=== PATIENT | female | born 1995 | race Caucasian/White ===

== ENCOUNTER 2017-04-23 12:50 | Emergency (ER) | payer OTHER ==
[~2017-04-23] VITALS: Ht 170.2 cm; Wt 162.0 kg
[~2017-04-23 12:50] MED LIST: CITA40TA4 PO; LAMI25TA PO; LEVO125T3 PO; SYNT112T2 PO; TRINTAB PO; ZONI100C2 PO
[2017-04-23 12:51] VITALS: BP 153/74
[2017-04-23] MEDS ORDERED: OMEP40CA2 (13:07)
[2017-04-23] MEDS ORDERED: WELLTAB40 PO (13:07)
[2017-04-23] MEDS ORDERED: LEVO112T2 (13:07)
[2017-04-23] MEDS ORDERED: PRAV20TA2 (13:07)
[2017-04-23] MEDS ORDERED: BACT800T5 PO (14:11)
[2017-04-23] MEDS ORDERED: KEFL500C7 PO (14:11)
[2017-04-23] MEDS ORDERED: CLAR1TAB2 PO (14:11)
== END 2017-04-23 14:27 | disposition home or self-care (01) ==
LOC: M ED 13:58
DX: R21 Rash and other nonspecific skin eruption (principal); E78.00 Pure hypercholesterolemia, unspecified; K21.9 Gastro-esophageal reflux disease without esophagitis; R51 Headache; E03.9 Hypothyroidism, unspecified; F33.9 Major depressive disorder, recurrent, unspecified; Z85.850 Personal history of malignant neoplasm of thyroid; Z79.899 Other long term (current) drug therapy; Z88.5 Allergy status to narcotic agent

== ENCOUNTER 2017-04-23 17:43 | Emergency (ER) | payer OTHER ==
[~2017-04-23] VITALS: Ht 170.2 cm; Wt 162.0 kg
[~2017-04-23 17:43] MED LIST changes: +BACT800T5 PO; +CLAR1TAB2 PO; +KEFL500C17 PO; +LEVO112T2 PO; -LEVO125T3 PO; +LEVO125T4 PO; +OMEP40CA2 PO; +PRAV20TA2; -TRINTAB PO; +TRINTAB3 PO; +WELLTAB40 PO
[2017-04-23] MEDS ORDERED: DOXYCYCLINE HYCLATE 100 MG in D5W MINI-BAG PLUS 100 ML IV ONE (19:45)
[2017-04-23] MEDS ORDERED: KETOROLAC 30 MG/ML VIAL (J1885) IV ONE (19:45)
[2017-04-23] MEDS ORDERED: ceFAZolin SOD 1 GM in D5W MINI-BAG PLUS 50 ML IV ONE (19:45)
[2017-04-23 20:28] LABS: BASO # 0.1 K/mm3 (0.0-0.2); BASO % 0.9 % (0.0-1.0); EOS # 0.2 K/mm3 (0.0-0.50); EOS % 1.8 % (0.0-3.0); LARGE UNSTAINED CELL # 0.3 K/mm3 (0.0-0.4); LARGE UNSTAINED CELL % 2.2 % (0.0-4.0); LYMPH # 2.9 K/mm3 (1.5-6.5); LYMPH % 25.2 % (24.0-44.0); MEAN CORPUSCULAR HEMOGLOBIN 22.8 pg (27.0-33.0); MEAN CORPUSCULAR HGB CONC 30.5 g/dl (32.0-36.5); MEAN CORPUSCULAR VOLUME 74.6 fl (80.0-96.0); MONO # 0.5 K/mm3 (0.0-0.8); NEUTROPHILS # 7.6 K/mm3 (1.8-7.7); PLATELET COUNT, AUTOMATED 319 k/mm3 (150-450); RED CELL DISTRIBUTION WIDTH 16.5 % (11.5-14.5); WHITE BLOOD COUNT 11.5 K/mm3 (4.0-10.0)
[2017-04-23 20:39] LABS: ANION GAP 5 MEQ/L (8-16); BLOOD UREA NITROGEN 10 MG/DL (7-18); CALCIUM LEVEL 8.6 MG/DL (8.5-10.1); CARBON DIOXIDE LEVEL 26 MEQ/L (21-32); CHLORIDE LEVEL 105 MEQ/L (98-107); GLOMERULAR FILTRATION RATE > 60.0 (>60); GLUCOSE, FASTING 95 MG/DL (70-105); POTASSIUM SERUM 3.7 MEQ/L (3.5-5.1); SODIUM LEVEL 136 MEQ/L (136-145)
--- NOTE | 2017-04-23 20:50 | REPUSA ---
CLINICAL HISTORY: Edema. COMMENTS: Real time sonography with duplex doppler of the extremities bilaterally was performed with attention to the major deep venous structures. Evaluation reveals the common femoral, superficial femoral, popliteal veins bilaterally to be complet nirav compressible without intraluminal thrombus. There is normal spontaneous phasic flow and augmentat ion in all deep veins. The greater saphenous/common femoral vein junctions are patent bilaterally. IMPRESSION: No evidence of DVT in the lower extremities bilaterally. Thank you for your kind referral of this patient.
[2017-04-23 22:10] LABS: ERYTHROCYTE SEDIMENTATION RATE 19 mm/hr (0-20)
[2017-04-23 22:19] VITALS: BP 138/66
[2017-08-04] MEDS ORDERED: VYVA30CA4 PO (13:07)
[2017-08-13] MEDS ORDERED: OXYC1TAB23 PO (08:43)
== END 2017-04-23 22:31 | disposition home or self-care (01) ==
LOC: M ED 19:11
DX: L03.115 Cellulitis of right lower limb (principal); L03.116 Cellulitis of left lower limb; K21.9 Gastro-esophageal reflux disease without esophagitis; E78.5 Hyperlipidemia, unspecified; R51 Headache; Z85.850 Personal history of malignant neoplasm of thyroid

== ENCOUNTER 2017-04-30 11:00 | Outpatient (RCR) | payer OTHER ==
[2017-08-04] MEDS ORDERED: VYVA30CA4 PO (13:07)
== END 2017-05-09 ==
LOC: M PT 11:00
PROVIDERS: ATTEND Podiatrist Foot & Ankle Surgery
DX: Z51.89 Encounter for other specified aftercare (principal); M72.2 Plantar fascial fibromatosis

== ENCOUNTER 2017-05-26 11:45 | Outpatient (RCR) | payer OTHER ==
[2017-08-04] MEDS ORDERED: VYVA30CA4 PO (13:07)
== END 2017-06-09 ==
LOC: M PT 11:45
PROVIDERS: ATTEND Podiatrist Foot & Ankle Surgery
DX: Z51.89 Encounter for other specified aftercare (principal); M72.2 Plantar fascial fibromatosis

== ENCOUNTER → 2017-07-29 | Outpatient (CLI) | payer OTHER ==
[~2017-07-29] MED LIST changes: +FERR1TAB8; +OXYC1TAB23 PO; +VYVA30CA4 PO
[2017-07-29 13:08] LABS: MEAN CORPUSCULAR HEMOGLOBIN 22.6 pg (27.0-33.0); MEAN CORPUSCULAR HGB CONC 30.9 g/dl (32.0-36.5); MEAN CORPUSCULAR VOLUME 73.3 fl (80.0-96.0); RED CELL DISTRIBUTION WIDTH 16.3 % (11.5-14.5); WHITE BLOOD COUNT 10.3 K/mm3 (4.0-10.0)
[2017-07-29 13:40] LABS: ANION GAP 5 MEQ/L (8-16); BLOOD UREA NITROGEN 8 MG/DL (7-18); CALCIUM LEVEL 8.6 MG/DL (8.5-10.1); CARBON DIOXIDE LEVEL 29 MEQ/L (21-32); CHLORIDE LEVEL 105 MEQ/L (98-107); CREATININE FOR GFR 0.59 MG/DL (0.55-1.02); GLOMERULAR FILTRATION RATE > 60.0 (>60); GLUCOSE, FASTING 92 MG/DL (70-105); SODIUM LEVEL 139 MEQ/L (136-145)
== END ==
LOC: M LAB 12:43
PROVIDERS: ATTEND Podiatrist Foot & Ankle Surgery
DX: M72.2 Plantar fascial fibromatosis (principal)

== ENCOUNTER 2017-08-08 13:51 | Emergency (ER) | payer OTHER ==
[~2017-08-08] VITALS: Ht 170.2 cm; Wt 162.7 kg
[2017-08-08 13:51] VITALS: BP 156/82
[~2017-08-08 13:51] MED LIST changes: -FERR1TAB8; -OXYC1TAB23 PO
[2017-08-08] MEDS ORDERED: FERR1TAB8 (13:59)
[2017-08-08] MEDS ORDERED: KEFL500C17 PO (16:28)
[2017-08-13] MEDS ORDERED: OXYC1TAB23 PO (08:43)
== END 2017-08-08 16:36 | disposition home or self-care (01) ==
LOC: M ED 13:51
DX: L25.9 Unspecified contact dermatitis, unspecified cause (principal)

== ENCOUNTER 2017-08-13 06:20 | Day surgery (SDC) | payer OTHER ==
[~2017-08-13] VITALS: Ht 170.2 cm; Wt 162.4 kg
[~2017-08-13 06:20] MED LIST changes: +FERR1TAB8
[2017-08-13] MEDS ORDERED: LR 1,000 ML IV ONE (06:30)
[2017-08-13] MEDS ORDERED: LIDOCAINE 2% MDV 20 ML VIAL As Ordered ONE (06:52)
[2017-08-13] MEDS ORDERED: BUPIVACAINE HCL 0.5% 10 ML VIAL As Ordered ONE (06:52)
[2017-08-13] MEDS ORDERED: dexameTHASONE 4 MG/ML 1ML VIAL (J1100) As Ordered ONE ×3 (06:53→08:16)
[2017-08-13 06:57] LABS: CONTROL LINE UCG INT CTR LINE PRESENT
[2017-08-13] MEDS ORDERED: fentaNYL 100 MCG/2 ML INJECTION (J3010) As Ordered ONE (07:06)
[2017-08-13] MEDS ORDERED: MIDAZOLAM INJ 2 MG/2 ML VIAL (J2250) As Ordered ONE (07:07)
[2017-08-13] MEDS ORDERED: LIDOCAINE 1% MDV 20ML VIAL As Ordered ONE (08:06)
[2017-08-13] MEDS ORDERED: LIDOCAINE 2% INJ 100 MG/5 ML SDV (FOR ANES.) As Ordered ONE ×2 (08:13→08:15)
[2017-08-13] MEDS ORDERED: PROPOFOL 200 MG/20 ML VIAL As Ordered ONE (08:13)
[2017-08-13] MEDS ORDERED: ONDANSETRON 4MG/2ML VIAL (J2405) As Ordered ONE (08:16)
[2017-08-13] MEDS ORDERED: OXYC1TAB23 PO (08:43)
[2017-08-13] MEDS ORDERED: ONDANSETRON 4MG/2ML VIAL (J2405) IV PRN (09:15)
[2017-08-13] MEDS ORDERED: LR 1,000 ML IV SCH (09:15)
[2017-08-13] MEDS ORDERED: PERCOCET 5MG/325MG TAB PO PRN (09:15)
[2017-08-13 09:45] VITALS: BP 175/110
--- NOTE | 2017-08-13 10:48 | RO ---
DATE OF PROCEDURE: 08/13/2017 PREPROCEDURE DIAGNOSIS: Bilateral plantar fasciitis. POSTPROCEDURE DIAGNOSIS: Bilateral plantar fasciitis. PROCEDURE: Bilateral endoscopic plantar fascia release. SURGEON: Markos Sanchez DPM BREWING TECHNICIAN: None. ANESTHESIA: Monitored anesthesia care with preoperative injection of 30 mL of 1:1 mixture of 1% lidocaine plain and 0.5% Marcaine plain. ESTIMATED BLOOD LOSS: Minimal. MATERIALS: #4-0 nylon. INJECTABLES: 10 mL 1% lidocaine plain, 1 mL Decadron 4 mg/mL per foot. COMPLICATIONS: None. CONDITION: Stable. Linda Echeverria is a 22-year-old female who presents with complaints of painful plantar fasciitis. She has undergone numerous conservative therapies without relief. She presents today for surgical correction. The patient's side and site were identified and marked in preoperative holding area. Consent was reviewed and obtained. All risks and complications and alternatives to the procedure were explained to the patient in detail. Questions were answered. DESCRIPTION OF PROCEDURE: The patient was brought to the operating room and placed on the operating room table in supine position. Monitored anesthesia care was delivered by the anesthesia team. Preoperative injection of 30 mL of 1:1 mixture of 1% lidocaine plain and 0.5% Marcaine plain were injected to the both feet. The feet were prepped and draped in a normal sterile fashion. Tourniquet was applied to each ankle inflated to 250 mmHg. On each heel, a small incision was made with a #15 blade, medial aspect of the heel. A hemostat was used to create a plane on the inferior margin of the plantar fascia. The trocar was then inserted from medial to lateral and a small portal was created at the lateral heel using a #15 blade. The trocar was removed leaving the cannula in place. The camera was inserted. The plantar fascia was visualized. The plantar fascia was released using the blade approximately two-thirds of the way across leaving the lateral one-third of the fascia intact. The site was irrigated with normal saline. Cannula was removed. Incision closed with #4-0 Nylon. 1 mL Decadron was injected to each incision site. Tourniquets were deflated. Sterile dressings were applied. Patient was brought to postanesthesia care unit with vital signs stable, neurovascular status intact. She will be weight bearing as tolerated. She will followup in office in 2 days.
== END 2017-08-13 09:50 | disposition home or self-care (01) ==
LOC: M SDC 06:20
PROVIDERS: ATTEND Podiatrist Foot & Ankle Surgery
DX: M72.2 Plantar fascial fibromatosis (principal); D64.9 Anemia, unspecified; F32.9 Major depressive disorder, single episode, unspecified; F41.9 Anxiety disorder, unspecified; N94.6 Dysmenorrhea, unspecified; F50.81 Binge eating disorder; J21.9 Acute bronchiolitis, unspecified; E05.00 Thyrotoxicosis with diffuse goiter without thyrotoxic crisis or storm; N92.0 Excessive and frequent menstruation with regular cycle; G43.909 Migraine, unspecified, not intractable, without status migrainosus; E66.9 Obesity, unspecified; G47.33 Obstructive sleep apnea (adult) (pediatric); E03.9 Hypothyroidism, unspecified; R06.83 Snoring; Z88.5 Allergy status to narcotic agent; Z79.899 Other long term (current) drug therapy

== ENCOUNTER 2017-11-10 13:00 | Emergency (ER) | payer MEDICAID, OTHER, SELFPAY | END 2017-11-10 16:50 | disposition left against medical advice (07) | LOC: M ED 13:00 | DX: Z53.29 Procedure and treatment not carried out because of patient's decision for other reasons (principal) ==

== ENCOUNTER 2018-02-25 09:17 | Day surgery (SDC) | payer OTHER ==
[2018-02-25] MEDS: NS 1,000 ML IV (09:30)
[2018-02-25] MEDS ORDERED: PROPOFOL 200 MG/20 ML VIAL As Ordered ×2 (10:00→10:08)
== END 2018-02-25 11:05 | disposition home or self-care (01) ==
LOC: M OPP 09:17
DX: R10.13 Epigastric pain (principal); R12 Heartburn; K22.8 Other specified diseases of esophagus; K44.9 Diaphragmatic hernia without obstruction or gangrene; I10 Essential (primary) hypertension; E78.5 Hyperlipidemia, unspecified; E03.9 Hypothyroidism, unspecified; K21.9 Gastro-esophageal reflux disease without esophagitis; D64.9 Anemia, unspecified; K59.00 Constipation, unspecified; F32.9 Major depressive disorder, single episode, unspecified; F41.9 Anxiety disorder, unspecified; R51 Headache; G47.30 Sleep apnea, unspecified; R06.83 Snoring; E66.01 Morbid (severe) obesity due to excess calories; Z88.8 Allergy status to other drugs, medicaments and biological substances; Z88.5 Allergy status to narcotic agent; Z79.899 Other long term (current) drug therapy
CPT/HCPCS: 43235

== ENCOUNTER 2018-08-03 20:49 | Emergency (ER) | payer OTHER ==
[2018-08-03 22:22] LABS: KETONE, URINE AUTO RFX 2+ mg/dL (NEGATIVE); LEUKOCYTE ESTERASE UR AUTO RFX NEGATIVE (NEGATIVE); MUCUS, URINE RFX LARGE (NEGATIVE); NITRITE, URINE AUTO RFX NEGATIVE (NEGATIVE); RBC, URINE AUTO RFX 3 /HPF (0-3); SPECIFIC GRAVITY UR AUTO RFX 1.021 (1.002-1.035); SQUAM EPITHELIAL CELL UR AURFX 1 /HPF (0-6); WBC, URINE AUTO RFX 5 /HPF (0-3)
[2018-08-03 23:38] LABS: CONTROL LINE UCG INT CTR LINE PRESENT; URINE PREG TEST NEGATIVE (NEGATIVE)
[2018-08-04] MEDS: GASTROGRAFIN SOLUTION 30ML PO ×2 (00:39→01:15)
[2018-08-04 00:56] LABS: BASO % 0.6 % (0.0-1.0); EOS # 0.1 10^3/uL (0.0-0.50); EOS % 1.9 % (0.0-3.0); HEMATOCRIT 34.5 % (36.0-47.0); HEMOGLOBIN 10.6 g/dl (12.0-15.5); IMMATURE GRANULOCYTE % 0.2 % (0-3.0); LYMPH % 42.4 % (24.0-44.0); MEAN CORPUSCULAR HEMOGLOBIN 25.1 pg (27.0-33.0); MEAN CORPUSCULAR HGB CONC 30.7 g/dl (32.0-36.5); MEAN CORPUSCULAR VOLUME 81.6 fl (80.0-96.0); MONO # 0.4 10^3/uL (0.0-0.8); MONO % 8.1 % (0.0-5.0); NEUTROPHILS # 2.2 10^3/uL (1.8-7.7); NEUTROPHILS % 46.8 % (36.0-66.0); PLATELET COUNT, AUTOMATED 227 10^3/uL (150-450); RED BLOOD COUNT 4.23 10^6/uL (4.00-5.40); RED CELL DISTRIBUTION WIDTH 16.8 % (11.5-14.5); WHITE BLOOD COUNT 4.7 10^3/uL (4.0-10.0)
[2018-08-04 01:16] LABS: ALBUMIN 3.6 GM/DL (3.2-5.2); ALBUMIN/GLOBULIN RATIO 1.24 (1.00-1.93); ALKALINE PHOSPHATASE 97 U/L (45-117); ALT/SGPT 40 U/L (12-78); ANION GAP 8 MEQ/L (8-16); AST/SGOT 21 U/L (7-37); BILIRUBIN,DIRECT 0.1 MG/DL (0.0-0.2); BILIRUBIN,TOTAL 0.4 MG/DL (0.2-1.0); BLOOD UREA NITROGEN 5 MG/DL (7-18); CALCIUM LEVEL 8.5 MG/DL (8.5-10.1); CARBON DIOXIDE LEVEL 26 MEQ/L (21-32); CHLORIDE LEVEL 108 MEQ/L (98-107); CK-MB VALUE MASS < 1.0 NG/ML (<3.6); CPK CREATINE PHOSPHOKINASE 50 U/L (26-192); CREATININE FOR GFR 0.63 MG/DL (0.55-1.30); GLOMERULAR FILTRATION RATE > 60.0 (>60); GLUCOSE, FASTING 99 MG/DL (70-100); LIPASE 140 U/L (73-393); POTASSIUM SERUM 3.7 MEQ/L (3.5-5.1); SODIUM LEVEL 142 MEQ/L (136-145); TOTAL PROTEIN 6.5 GM/DL (6.4-8.2); TROPONIN I < 0.02 NG/ML (< 0.10)
[2018-08-04] MEDS ORDERED: ISOVUE-370 76% 100ML VIAL (Q9967) As Ordered (02:10)
[2018-08-04] MEDS: OXYCODONE/APAP 5MG/325MG(BULK FOR ED) 1 TABLET PO (04:15)
== END 2018-08-04 04:27 | disposition home or self-care (01) ==
LOC: M ED 08-04 04:27
DX: R10.9 Unspecified abdominal pain (principal); Z98.84 Bariatric surgery status; I10 Essential (primary) hypertension; K21.9 Gastro-esophageal reflux disease without esophagitis
CPT/HCPCS: Q9963

== ENCOUNTER → 2018-10-26 | Outpatient (CLI) | payer OTHER ==
[~2018-10-26] MED LIST changes: +ATOR1TAB21 PO; +FAMO1TAB11; +LISI-542 PO; +OXYC1TAB23 PO; +VYVA40CA3 PO
[2018-10-26 15:37] LABS: FREE T4 0.38 NG/DL (0.76-1.46); THYROID STIMULATING HORMONE 78.7 uIU/ML (0.358-3.740)
== END ==
LOC: M LAB 14:17
PROVIDERS: ATTEND Internal Medicine Endocrinology, Diabetes & Metabolism
DX: E89.0 Postprocedural hypothyroidism (principal)

== ENCOUNTER → 2018-10-26 | Outpatient (REF) | payer OTHER | LOC: M LAB REF 18:24 | PROVIDERS: ATTEND Surgery | DX: K91.2 Postsurgical malabsorption, not elsewhere classified (principal); Z98.84 Bariatric surgery status ==

== ENCOUNTER → 2018-12-22 | Outpatient (REF) | payer OTHER ==
[~2018-12-22] MED LIST changes: +TRINTAB PO; -TRINTAB3 PO
[2018-12-22 16:51] LABS: APPEARANCE, URINE CLEAR (CLEAR); BACTERIA, URINE AUTO NEGATIVE (NEGATIVE); BILIRUBIN, URINE AUTO NEGATIVE (NEGATIVE); BLOOD, URINE BLOOD NEGATIVE (NEGATIVE); COLOR, URINE YELLOW (YELLOW); GLUCOSE, URINE (UA) AUTO NEGATIVE (NEGATIVE); KETONE, URINE AUTO TRACE mg/dL (NEGATIVE); LEUKOCYTE ESTERASE, URINE AUTO NEGATIVE (NEGATIVE); MUCUS, URINE SMALL (NEGATIVE); NITRITE, URINE AUTO NEGATIVE (NEGATIVE); PROTEIN, URINE AUTO NEGATIVE (NEGATIVE); RBC, URINE AUTO 0 /HPF (0-3); SPECIFIC GRAVITY URINE AUTO 1.025 (1.002-1.035); SQUAMOUS EPITHELIAL CELL UR AU 1 /HPF (0-6); UROBILINOGEN, URINE AUTO 0.2 mg/dL (0.0-2.0); WBC, URINE AUTO 1 /HPF (0-3)
== END ==
LOC: M LAB REF 16:18
PROVIDERS: ATTEND Physician Assistant Medical
DX: N39.0 Urinary tract infection, site not specified (principal)

== ENCOUNTER 2019-03-18 01:22 | Emergency (ER) | payer OTHER ==
[~2019-03-18] VITALS: Ht 170.2 cm; Wt 137.8 kg
[2019-03-18] MEDS ORDERED: LEVO125T4 PO (02:17)
[2019-03-18] MEDS ORDERED: MULTCAP PO (02:17)
[2019-03-18 02:20] LABS: BASO # 0.1 10^3/uL (0.0-0.2); BASO % 0.7 % (0.0-1.0); EOS # 0.2 10^3/uL (0.0-0.50); EOS % 1.5 % (0.0-3.0); HEMATOCRIT 36.1 % (36.0-47.0); HEMOGLOBIN 10.9 g/dl (12.0-15.5); LYMPH # 2.7 10^3/uL (1.5-6.5); LYMPH % 27.9 % (24.0-44.0); MEAN CORPUSCULAR HGB CONC 30.2 g/dl (32.0-36.5); MEAN CORPUSCULAR VOLUME 79.3 fl (80.0-96.0); MONO # 0.7 10^3/uL (0.0-0.8); MONO % 6.9 % (0.0-5.0); NEUTROPHILS # 6.1 10^3/uL (1.8-7.7); NEUTROPHILS % 62.6 % (36.0-66.0); PLATELET COUNT, AUTOMATED 320 10^3/uL (150-450); RED BLOOD COUNT 4.55 10^6/uL (4.00-5.40); WHITE BLOOD COUNT 9.8 10^3/uL (4.0-10.0)
[2019-03-18] MEDS ORDERED: ESCI10TA2 PO (02:31)
[2019-03-18 02:34] LABS: HCG, SERUM QUALITATIVE NEGATIVE (NEGATIVE)
[2019-03-18] MEDS ORDERED: ONDANSETRON 4MG/2ML VIAL (J2405) IV ONE (02:45)
[2019-03-18 02:54] LABS: ALBUMIN 3.5 GM/DL (3.2-5.2); ALT/SGPT 23 U/L (12-78); BILIRUBIN,DIRECT 0.1 MG/DL (0.0-0.2); BILIRUBIN,TOTAL 0.5 MG/DL (0.2-1.0); BLOOD UREA NITROGEN 8 MG/DL (7-18); CALCIUM LEVEL 8.8 MG/DL (8.5-10.1); CARBON DIOXIDE LEVEL 28 MEQ/L (21-32); CHLORIDE LEVEL 106 MEQ/L (98-107); CREATININE FOR GFR 0.55 MG/DL (0.55-1.30); GLOMERULAR FILTRATION RATE > 60.0 (>60); GLUCOSE, FASTING 92 MG/DL (70-100); LIPASE 111 U/L (73-393); POTASSIUM SERUM 4.3 MEQ/L (3.5-5.1); SODIUM LEVEL 142 MEQ/L (136-145); TOTAL PROTEIN 6.7 GM/DL (6.4-8.2)
[2019-03-18] MEDS: MORPHINE 2 MG/ML 1ML SYRINGE (J2270) IV PRN ×2 (02:59→03:41)
--- NOTE | 2019-03-18 03:10 | REP ---
Clinical: Abdominal pain. Rule out perforation. Technique: Upright view of the chest with supine and upright views of the abdomen and pelvis. Findings: Frontal upright view of the chest demonstrates no acute cardiopulmonary process or free air below the diaphragm to suspect pneumoperitoneum. Supine and upright views of the abdomen and pelvis demonstrate nonspecific bowel gas pattern without obstruction or perforation. No organomegaly. No abnormal calcifications. Skeletal structures normal for age. Impression: Nonspecific bowel gas pattern. Electronically Signed by Yves Rinaldi MD 03/18/2019 03:02 A
[2019-03-18] MEDS ORDERED: ISOVUE-370 76% 100ML VIAL (Q9967) As Ordered ONE (03:22)
[2019-03-18] MEDS: GASTROGRAFIN SOLUTION 30ML PO SCH ×2 (03:41→03:55)
--- NOTE | 2019-03-18 05:19 | REPVR ---
EXAM: CT Abdomen and Pelvis With Contrast EXAM DATE/TIME: 03/18/2019 3:14 AM CLINICAL HISTORY: 23 years old, female; Abdominal pain; Epigastric; Prior surgery; Surgery date: 6+ months; Surgery type: G bypass; Additional info: R/O gastric bypass perforation TECHNIQUE: Imaging protocol: Axial computed tomography images of the abdomen and pelvis with intravenous contrast. Coronal and sagittal reformatted images were created and reviewed. Radiation optimization: All CT scans at this facility use at least one of these dose optimization techniques: automated exposure control; mA and/or kV adjustment per patient size (includes targeted exams where dose is matched to clinical indication); or iterative reconstruction. Contrast material: ISO; Contrast volume: 100 ml; Contrast route: AC; COMPARISON: CT ABD/PEL W/IV ORAL CONTRAS 08/04/2018 2:10 AM FINDINGS: Lungs: There is mild peripheral nonspecific groundglass opacity in the bilateral lung bases. ABDOMEN: Liver: The liver appears heterogeneously decreased in density, consistent with fatty infiltration. Gallbladder and bile ducts: There has been a cholecystectomy. There is no biliary ductal dilation. Pancreas: The pancreas is normal with no ductal dilation. Spleen: The spleen is mildly enlarged measuring 15 cm, unchanged from prior exam. Adrenals: The adrenal glands are normal. Kidneys and ureters: The kidneys are normal. There are no ureteral stones or hydronephrosis. Stomach and bowel: There are surgical sutures at the stomach and small bowel, related to a gastric bypass surgery. There is no dilation or thickening of the small bowel. The regions of the anastomoses appear unremarkable. There is no dilation or thickening of the colon. Appendix: The appendix is not specifically identified. PELVIS: Bladder: The bladder is unremarkable. No stones identified. Reproductive: The uterus is unremarkable. There is a tampon in the vagina. ABDOMEN and PELVIS: Intraperitoneal space: There is a trace of free fluid in pelvis. There is no free intraperitoneal air. Bones/joints: No suspicious osseous lesions. No acute fractures or dislocations. Soft tissues: Unremarkable. Vasculature: The aorta is normal. No aneurysm. Lymph nodes: No lymphadenopathy is seen. There are multiple small mesenteric lymph nodes in the right lower quadrant, not pathologically enlarged by CT criteria, and slightly smaller than on the prior exam. IMPRESSION: 1. No inflammatory changes around the sites of anastomoses from the gastric bypass. No evidence of bowel perforation. 2. Fatty liver. 3. Mild splenomegaly, unchanged. Electronically signed by: Beulah Wells On 03/18/2019 05:18:44 AM
[2019-03-18] MEDS ORDERED: BISACODYL 5 MG TAB PO ONE (05:30)
[2019-03-18] MEDS ORDERED: DICY10CA13 PO (05:40)
[2019-03-18 05:48] VITALS: BP 129/64
== END 2019-03-18 05:55 | disposition home or self-care (01) ==
LOC: M ED 01:22
DX: K59.00 Constipation, unspecified (principal); Z98.84 Bariatric surgery status; Z79.899 Other long term (current) drug therapy; Z88.5 Allergy status to narcotic agent
CPT/HCPCS: 74021; 74177; 80048; 80076; 81001; 83690; 84703; 85025; 96374; 96375; 96376; 99284; J2270; J2405; Q9963; Q9967

== ENCOUNTER → 2019-04-07 | Outpatient (REF) | payer OTHER, MEDICAID ==
[~2019-04-07] MED LIST changes: +DICY10CA13 PO; +ESCI10TA2 PO; +MULTCAP PO
[2019-04-07 12:59] LABS: BASO # 0.1 10^3/uL (0.0-0.2); BASO % 0.7 % (0.0-1.0); EOS # 0.2 10^3/uL (0.0-0.50); EOS % 1.7 % (0.0-3.0); HEMATOCRIT 35.8 % (36.0-47.0); HEMOGLOBIN 10.7 g/dl (12.0-15.5); LYMPH # 2.7 10^3/uL (1.5-6.5); MEAN CORPUSCULAR HEMOGLOBIN 23.3 pg (27.0-33.0); MEAN CORPUSCULAR HGB CONC 29.9 g/dl (32.0-36.5); MONO # 0.5 10^3/uL (0.0-0.8); MONO % 6.1 % (0.0-5.0); NEUTROPHILS # 5.5 10^3/uL (1.8-7.7); NEUTROPHILS % 61.3 % (36.0-66.0); PLATELET COUNT, AUTOMATED 325 10^3/uL (150-450); RED BLOOD COUNT 4.59 10^6/uL (4.00-5.40); WHITE BLOOD COUNT 8.9 10^3/uL (4.0-10.0)
[2019-04-07 13:05] LABS: AMORPHOUS SEDIMENT LARGE (NEGATIVE); APPEARANCE, URINE TURBID (CLEAR); BACTERIA, URINE AUTO NEGATIVE (NEGATIVE); BILIRUBIN, URINE AUTO NEGATIVE (NEGATIVE); BLOOD, URINE BLOOD NEGATIVE (NEGATIVE); COLOR, URINE AMBER (YELLOW); GLUCOSE, URINE (UA) AUTO NEGATIVE (NEGATIVE); KETONE, URINE AUTO NEGATIVE (NEGATIVE); LEUKOCYTE ESTERASE, URINE AUTO TRACE (NEGATIVE); NITRITE, URINE AUTO NEGATIVE (NEGATIVE); PROTEIN, URINE AUTO NEGATIVE (NEGATIVE); RBC, URINE AUTO 1 /HPF (0-3); SPECIFIC GRAVITY URINE AUTO 1.023 (1.002-1.035); SQUAMOUS EPITHELIAL CELL UR AU 13 /HPF (0-6); UROBILINOGEN, URINE AUTO 0.2 mg/dL (0.0-2.0); WBC, URINE AUTO 7 /HPF (0-3)
[2019-04-07 13:31] LABS: ALBUMIN 3.5 GM/DL (3.2-5.2); ALT/SGPT 18 U/L (12-78); BILIRUBIN,TOTAL 0.5 MG/DL (0.2-1.0); BLOOD UREA NITROGEN 8 MG/DL (7-18); CALCIUM LEVEL 8.2 MG/DL (8.5-10.1); CARBON DIOXIDE LEVEL 26 MEQ/L (21-32); CHLORIDE LEVEL 107 MEQ/L (98-107); CHOLESTEROL LEVEL 151 MG/DL (<200); CHOLESTEROL RISK RATIO 4.081 (<5); CREATININE FOR GFR 0.57 MG/DL (0.55-1.30); FREE T4 1.16 NG/DL (0.76-1.46); GLOMERULAR FILTRATION RATE > 60.0 (>60); GLUCOSE, FASTING 92 MG/DL (70-100); HDL CHOLESTEROL 37 MG/DL (>40); LDL CHOLESTEROL 93 MG/DL (<100); NON-HDL-C 114 MG/DL; POTASSIUM SERUM 4.1 MEQ/L (3.5-5.1); SODIUM LEVEL 140 MEQ/L (136-145); TOTAL 25(OH) VITAMIN D 15.8 NG/ML (30.0-100.0); TOTAL PROTEIN 6.6 GM/DL (6.4-8.2); TRIGLYCERIDES LEVEL 106 MG/DL (<150)
[2019-04-07 13:32] LABS: HEMOGLOBIN A1c 5.4 %
[2019-04-09 00:07] LABS: Lyme Disease IgG/IgM Antibodie <0.91 ISR (0.00-0.90); Lyme Disease IgM Ab Quantitati <0.80 index (0.00-0.79)
== END ==
LOC: M LAB REF 12:18
PROVIDERS: ATTEND Family Medicine
DX: Z00.01 Encounter for general adult medical examination with abnormal findings (principal); E66.8 Other obesity; Z13.228 Encounter for screening for other metabolic disorders

== ENCOUNTER 2019-10-07 02:13 | Emergency (ER) | payer MEDICAID, OTHER, SELFPAY ==
[~2019-10-07] VITALS: Ht 170.2 cm; Wt 136.4 kg
[~2019-10-07 02:13] MED LIST changes: -OMEP40CA2 PO; +OMEP40CA97 PO
[2019-10-07 03:13] LABS: HEMATOCRIT 35.5 % (36.0-47.0); HEMOGLOBIN 10.4 g/dl (12.0-15.5); MEAN CORPUSCULAR HEMOGLOBIN 22.1 pg (27.0-33.0); MEAN CORPUSCULAR HGB CONC 29.3 g/dl (32.0-36.5); MEAN CORPUSCULAR VOLUME 75.4 fl (80.0-96.0); PLATELET COUNT, AUTOMATED 266 10^3/uL (150-450); RED BLOOD COUNT 4.71 10^6/uL (4.00-5.40); WHITE BLOOD COUNT 8.7 10^3/uL (4.0-10.0)
[2019-10-07 03:30] LABS: AMPHETAMINES LEVEL URINE NEGATIVE (NEGATIVE); BARBITURATES URINE NEGATIVE (NEGATIVE); BENZODIAZEPINES URINE NEGATIVE (NEGATIVE); CANNABINOIDS URINE NEGATIVE (NEGATIVE); COCAINE METABOLITE URINE NEGATIVE (NEGATIVE); METHADONE URINE NEGATIVE (NEGATIVE); OPIATES URINE NEGATIVE (NEGATIVE); PHENCYCLIDINE URINE NEGATIVE (NEGATIVE)
[2019-10-07 03:44] LABS: ACETAMINOPHEN LEVEL < 2.0 UG/ML (10.0-30.0); ALBUMIN 3.7 GM/DL (3.2-5.2); ALT/SGPT 19 U/L (12-78); BILIRUBIN,DIRECT 0.1 MG/DL (0.0-0.2); BILIRUBIN,TOTAL 0.4 MG/DL (0.2-1.0); BLOOD UREA NITROGEN 7 MG/DL (7-18); CALCIUM LEVEL 8.3 MG/DL (8.5-10.1); CARBON DIOXIDE LEVEL 28 MEQ/L (21-32); CHLORIDE LEVEL 110 MEQ/L (98-107); CREATININE FOR GFR 0.64 MG/DL (0.55-1.30); ETHYL ALCOHOL (ETHANOL) < 0.003 % (0.000-0.010); FREE T4 0.54 NG/DL (0.76-1.46); GLOMERULAR FILTRATION RATE > 60.0 (>60); GLUCOSE, FASTING 97 MG/DL (70-100); POTASSIUM SERUM 4.1 MEQ/L (3.5-5.1); SALICYLATE LEVEL < 1.7 MG/DL (5.0-30.0); SODIUM LEVEL 142 MEQ/L (136-145); TOTAL PROTEIN 6.9 GM/DL (6.4-8.2)
[2019-10-07 04:52] VITALS: BP 130/73
== END 2019-10-07 04:53 | disposition home or self-care (01) ==
LOC: M ED 02:13
DX: F43.0 Acute stress reaction (principal); F32.9 Major depressive disorder, single episode, unspecified; E03.9 Hypothyroidism, unspecified; Z98.84 Bariatric surgery status; F17.290 Nicotine dependence, other tobacco product, uncomplicated; Z79.899 Other long term (current) drug therapy; Z88.5 Allergy status to narcotic agent
CPT/HCPCS: 80048; 80076; 80307; 84439; 84443; 85027; 99284; G0480

== ENCOUNTER 2019-10-20 09:27 | Emergency (ER) | payer SELFPAY ==
[~2019-10-20] VITALS: Ht 170.2 cm; Wt 140.0 kg
--- NOTE | 2019-10-20 11:44 | REP ---
Left inguinal ultrasound: History: Left lower quadrant pain. Rule out hernia. Findings: No abdominal wall or inguinal canal defect is seen. No hernia is appreciated at rest or with Valsalva. No cyst or adenopathy or mass is seen. Impression: Negative left inguinal canal sonography. Electronically Signed by North Fine MD 10/20/2019 11:36 A
[2019-10-20 12:35] LABS: BASO # 0.1 10^3/uL (0.0-0.2); BASO % 0.9 % (0.0-1.0); EOS # 0.1 10^3/uL (0.0-0.5); EOS % 1.4 % (0.0-3.0); HEMATOCRIT 36.7 % (36.0-47.0); HEMOGLOBIN 10.5 g/dl (12.0-15.5); LYMPH # 3.4 10^3/uL (1.5-5.0); LYMPH % 37.5 % (24.0-44.0); MEAN CORPUSCULAR HEMOGLOBIN 21.8 pg (27.0-33.0); MEAN CORPUSCULAR HGB CONC 28.6 g/dl (32.0-36.5); MEAN CORPUSCULAR VOLUME 76.3 fl (80.0-96.0); MONO # 0.5 10^3/uL (0.0-0.8); MONO % 5.8 % (0.0-5.0); NEUTROPHILS # 4.9 10^3/uL (1.5-8.5); NEUTROPHILS % 54.1 % (36.0-66.0); PLATELET COUNT, AUTOMATED 290 10^3/uL (150-450); RED BLOOD COUNT 4.81 10^6/uL (4.00-5.40)
[2019-10-20 13:41] LABS: BLOOD UREA NITROGEN 9 MG/DL (7-18); CARBON DIOXIDE LEVEL 27 MEQ/L (21-32); CHLORIDE LEVEL 108 MEQ/L (98-107); CREATININE FOR GFR 0.73 MG/DL (0.55-1.30); GLOMERULAR FILTRATION RATE > 60.0 (>60); GLUCOSE, FASTING 87 MG/DL (70-100); POTASSIUM SERUM 4.6 MEQ/L (3.5-5.1); SODIUM LEVEL 142 MEQ/L (136-145)
[2019-10-20 13:42] LABS: ALT/SGPT 21 U/L (12-78); BILIRUBIN,TOTAL 0.5 MG/DL (0.2-1.0)
[2019-10-20 13:43] LABS: ALBUMIN 3.7 GM/DL (3.2-5.2); BILIRUBIN,DIRECT < 0.1 MG/DL (0.0-0.2); LIPASE 108 U/L (73-393); TOTAL PROTEIN 6.8 GM/DL (6.4-8.2)
[2019-10-20 14:08] VITALS: BP 127/66
== END 2019-10-20 14:19 | disposition home or self-care (01) ==
LOC: M ED 09:27
DX: R10.9 Unspecified abdominal pain (principal); Z98.84 Bariatric surgery status; F17.290 Nicotine dependence, other tobacco product, uncomplicated; Z79.899 Other long term (current) drug therapy; Z88.5 Allergy status to narcotic agent

== ENCOUNTER 2020-08-15 23:25 | Emergency (ER) | payer OTHER ==
[~2020-08-15] VITALS: Ht 170.2 cm; Wt 126.7 kg
[~2020-08-15 23:25] MED LIST changes: +ZONI100C17 PO; -ZONI100C2 PO
[2020-08-15] MEDS ORDERED: ARIP1TAB6 PO (23:44)
[2020-08-15] MEDS ORDERED: FERR325T3 PO (23:44)
[2020-08-15] MEDS ORDERED: SERT50TA29 PO (23:44)
[2020-08-16] MEDS ORDERED: ACETAMINOPHEN 500 MG TAB PO ONE (01:15)
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
[2020-08-16 02:05] VITALS: BP 135/79
== END 2020-08-16 02:08 | disposition home or self-care (01) ==
LOC: M ED 23:25
DX: M79.641 Pain in right hand (principal); V40.5XXA Car driver injured in collision with pedestrian or animal in traffic accident, initial encounter; Y92.9 Unspecified place or not applicable; Y93.9 Activity, unspecified; Y99.9 Unspecified external cause status; R51.9 Headache, unspecified; I10 Essential (primary) hypertension; G47.30 Sleep apnea, unspecified; K21.9 Gastro-esophageal reflux disease without esophagitis; E03.9 Hypothyroidism, unspecified; F32.9 Major depressive disorder, single episode, unspecified; Z85.850 Personal history of malignant neoplasm of thyroid; Z98.84 Bariatric surgery status; Z79.899 Other long term (current) drug therapy; Z88.5 Allergy status to narcotic agent

== ENCOUNTER 2022-06-09 12:56 | Inpatient (IN) | payer MEDICAID, OTHER ==
[~2022-06-09] VITALS: Ht 170.2 cm; Wt 126.8 kg
[~2022-06-09 12:56] MED LIST changes: +ARIP1TAB6 PO; -CITA40TA4 PO; +CITA40TA7 PO; +ESCI10TA16 PO; -ESCI10TA2 PO; +FERR325T3 PO; -LISI-542 PO; +LISI5TAB11 PO; +OMEP40CA4 PO; -OMEP40CA97 PO; +SERT50TA29 PO; -ZONI100C17 PO; +ZONI100C67 PO
[2022-06-09 15:35] LABS: HEMOGLOBIN 9.4 g/dl (12.0-15.5); MEAN CORPUSCULAR HEMOGLOBIN 22.7 pg (27.0-33.0); MEAN CORPUSCULAR HGB CONC 29.4 g/dl (32.0-36.5); MEAN CORPUSCULAR VOLUME 77.1 fl (80.0-96.0); PLATELET COUNT, AUTOMATED 318 10^3/uL (150-450); RED BLOOD COUNT 4.15 10^6/uL (4.00-5.40); WHITE BLOOD COUNT 7.4 10^3/uL (4.0-10.0)
[2022-06-09 15:53] LABS: HCG, SERUM QUALITATIVE NEGATIVE (NEGATIVE)
[2022-06-09 16:01] LABS: AMPHETAMINES LEVEL URINE NEGATIVE (NEGATIVE); BARBITURATES URINE NEGATIVE (NEGATIVE); BENZODIAZEPINES URINE NEGATIVE (NEGATIVE); CANNABINOIDS URINE POSITIVE (NEGATIVE); COCAINE METABOLITE URINE NEGATIVE (NEGATIVE); METHADONE URINE NEGATIVE (NEGATIVE); OPIATES URINE NEGATIVE (NEGATIVE); PHENCYCLIDINE URINE NEGATIVE (NEGATIVE)
[2022-06-09 16:09] LABS: ACETAMINOPHEN LEVEL < 2.0 UG/ML (10.0-30.0); ALBUMIN 3.4 GM/DL (3.2-5.2); ALT/SGPT 15 U/L (12-78); BILIRUBIN,DIRECT < 0.1 MG/DL (0.0-0.2); BILIRUBIN,TOTAL 0.4 MG/DL (0.2-1.0); BLOOD UREA NITROGEN 7 MG/DL (7-18); CARBON DIOXIDE LEVEL 28 MEQ/L (21-32); CHLORIDE LEVEL 111 MEQ/L (98-107); CREATININE FOR GFR 0.58 MG/DL (0.55-1.30); ETHYL ALCOHOL (ETHANOL) < 0.003 % (0.000-0.010); GLOMERULAR FILTRATION RATE > 60.0 (>60); GLUCOSE, FASTING 92 MG/DL (70-100); POTASSIUM SERUM 4.8 MEQ/L (3.5-5.1); SALICYLATE LEVEL < 1.7 MG/DL (5.0-30.0); SODIUM LEVEL 144 MEQ/L (136-145); THYROID STIMULATING HORMONE 0.103 uIU/ML (0.358-3.740); TOTAL PROTEIN 6.1 GM/DL (6.4-8.2)
[2022-06-09 16:16] LABS: RSV AMPLIFICATION NEGATIVE (NEGATIVE)
[2022-06-09] MEDS ORDERED: SYNT300T2 PO (18:20)
[2022-06-09] MEDS ORDERED: HOME MED LIST COMPLETE! XX SCH (18:25)
[2022-06-10] MEDS: LEVOTHYROXINE 100MCG TABLET (0.1MG) PO SCH (06:00)
[2022-06-11] MEDS: LEVOTHYROXINE 100MCG TABLET (0.1MG) PO SCH (06:00)
[2022-06-11] MEDS ORDERED: MOM 30ML SUSPENSION UDC PO PRN (14:25)
[2022-06-11] MEDS ORDERED: MAALOX 30 ML SUSP *UDC PO PRN (14:25)
[2022-06-11] MEDS ORDERED: traZODone 50 MG TAB PO PRN (14:25)
[2022-06-11] MEDS ORDERED: NICOTINE 21MG/24HR 1 EA TRANSDERMAL TD PRN (14:25)
[2022-06-11 15:30] VITALS: BP 173/97
[2022-06-11 18:56] VITALS: BP 152/78
[2022-06-12] MEDS: LEVOTHYROXINE 150MCG TABLET (0.15MG) PO SCH (05:45)
[2022-06-12 06:34] VITALS: BP 137/61
[2022-06-12] MEDS: NICOTINE 21MG/24HR 1 EA TRANSDERMAL TD SCH (08:56)
[2022-06-12] MEDS: ONDANSETRON 4MG TAB PO PRN ×2 (13:23→17:47)
[2022-06-12] MEDS: VENLAFAXINE **XR** 37.5 MG CAPSULE PO SCH (13:23)
[2022-06-12 17:35] VITALS: BP 143/90
[2022-06-12] MEDS: ACETAMINOPHEN TAB 650MG DOSE (2X325MG) PO PRN (17:47)
[2022-06-12] MEDS ORDERED: FIORICET TAB PO ONE (22:00)
[2022-06-13] MEDS: ONDANSETRON 4MG TAB PO PRN ×2 (03:31→17:44)
[2022-06-13 03:35] VITALS: BP 140/82
[2022-06-13] MEDS: LEVOTHYROXINE 150MCG TABLET (0.15MG) PO SCH (05:55)
[2022-06-13 06:45] VITALS: BP 112/53
[2022-06-13] MEDS: NICOTINE 21MG/24HR 1 EA TRANSDERMAL TD SCH (08:33)
[2022-06-13] MEDS: VENLAFAXINE **XR** 37.5 MG CAPSULE PO SCH (08:33)
[2022-06-13 16:34] VITALS: BP 143/89
[2022-06-13] MEDS: ACETAMINOPHEN TAB 650MG DOSE (2X325MG) PO PRN (19:57)
[2022-06-14] MEDS: LEVOTHYROXINE 150MCG TABLET (0.15MG) PO SCH (05:43)
[2022-06-14 06:42] VITALS: BP 117/59
[2022-06-14] MEDS: NICOTINE 21MG/24HR 1 EA TRANSDERMAL TD SCH (09:24)
[2022-06-14] MEDS: VENLAFAXINE **XR** 37.5 MG CAPSULE PO SCH (09:24)
[2022-06-14 16:00] VITALS: BP 127/80
[2022-06-14] MEDS: ONDANSETRON 4MG TAB PO PRN (20:16)
[2022-06-14] MEDS: ACETAMINOPHEN TAB 650MG DOSE (2X325MG) PO PRN (20:16)
[2022-06-15] MEDS: LEVOTHYROXINE 150MCG TABLET (0.15MG) PO SCH (05:51)
[2022-06-15 06:44] VITALS: BP 120/58
[2022-06-15] MEDS: VENLAFAXINE **XR** 37.5 MG CAPSULE PO SCH (08:24)
[2022-06-15] MEDS: NICOTINE 21MG/24HR 1 EA TRANSDERMAL TD SCH (08:25)
[2022-06-15 16:48] VITALS: BP 139/65
[2022-06-15] MEDS: ONDANSETRON 4MG TAB PO PRN (21:18)
[2022-06-15] MEDS: ACETAMINOPHEN TAB 650MG DOSE (2X325MG) PO PRN (21:18)
[2022-06-16] MEDS: LEVOTHYROXINE 150MCG TABLET (0.15MG) PO SCH (05:47)
[2022-06-16 06:37] VITALS: BP 144/59
[2022-06-16] MEDS: VENLAFAXINE **XR** 37.5 MG CAPSULE PO SCH (08:19)
[2022-06-16] MEDS: NICOTINE 21MG/24HR 1 EA TRANSDERMAL TD SCH (08:20)
[2022-06-16] MEDS: ACETAMINOPHEN TAB 650MG DOSE (2X325MG) PO PRN ×2 (15:32→21:47)
[2022-06-16] MEDS: ONDANSETRON 4MG TAB PO PRN (15:33)
[2022-06-16 16:50] VITALS: BP 130/78
[2022-06-17] MEDS: LEVOTHYROXINE 150MCG TABLET (0.15MG) PO SCH (05:35)
[2022-06-17 06:44] VITALS: BP 136/62
[2022-06-17] MEDS: VENLAFAXINE **XR** 37.5 MG CAPSULE PO SCH (08:08)
[2022-06-17] MEDS: NICOTINE 21MG/24HR 1 EA TRANSDERMAL TD SCH (08:08)
[2022-06-17] MEDS ORDERED: VENL37.598 PO (10:08)
[2022-06-17] MEDS ORDERED: TRAZ-252 PO (10:08)
[2022-06-17] MEDS ORDERED: LEVO150T7 PO (10:08)
== END 2022-06-17 12:04 | disposition home or self-care (01) | DRG 751 ==
LOC: M ED 15:44 → M ED INP 06-11 14:23 → M PSY 06-11 15:31
PROVIDERS: ADMIT Psychiatry & Neurology Psychiatry; ATTEND Psychiatry & Neurology Psychiatry
DX: F33.1 Major depressive disorder, recurrent, moderate (principal); R45.851 Suicidal ideations; F41.1 Generalized anxiety disorder; Z79.899 Other long term (current) drug therapy; Z88.5 Allergy status to narcotic agent; Z88.8 Allergy status to other drugs, medicaments and biological substances; F43.10 Post-traumatic stress disorder, unspecified; E89.0 Postprocedural hypothyroidism; F17.200 Nicotine dependence, unspecified, uncomplicated; Z62.810 Personal history of physical and sexual abuse in childhood; D64.9 Anemia, unspecified

== ENCOUNTER → 2022-08-14 | Outpatient (CLI) | payer OTHER ==
[~2022-08-14] MED LIST changes: +LEVO150T7 PO; +SYNT300T2 PO; +TRAZ-252 PO; +VENL37.598 PO
[2022-08-14 19:35] LABS: FREE T4 1.07 NG/DL (0.76-1.46); THYROID STIMULATING HORMONE 0.947 uIU/ML (0.358-3.740); THYROXINE (T4) 12.4 UG/DL (4.5-12.0)
[2022-08-14 20:33] LABS: HEPATITIS B SURFACE ANTIGEN NEGATIVE (NEGATIVE)
[2022-08-14 21:00] LABS: HEPATITIS C VIRUS ABY INDEX < 0.0 INDEX (<0.8)
[2022-08-16 18:07] LABS: HSV TYPE II IgG SPECIFIC <0.91 index (0.00-0.90)
== END ==
LOC: M LAB 15:51
PROVIDERS: ATTEND Nurse Practitioner Family
DX: E89.0 Postprocedural hypothyroidism (principal); Z11.3 Encounter for screening for infections with a predominantly sexual mode of transmission; N93.8 Other specified abnormal uterine and vaginal bleeding

== ENCOUNTER → 2022-08-14 | Outpatient (CLI) | payer OTHER ==
[2022-08-14 18:35] LABS: HEMATOCRIT 36.8 % (36.0-47.0); HEMOGLOBIN 10.5 g/dl (12.0-15.5); MEAN CORPUSCULAR HEMOGLOBIN 21.2 pg (27.0-33.0); MEAN CORPUSCULAR HGB CONC 28.5 g/dl (32.0-36.5); MEAN CORPUSCULAR VOLUME 74.3 fl (80.0-96.0); PLATELET COUNT, AUTOMATED 340 10^3/uL (150-450); RED BLOOD COUNT 4.95 10^6/uL (4.00-5.40); WHITE BLOOD COUNT 8.4 10^3/uL (4.0-10.0)
[2022-08-14 19:20] LABS: FREE T4 1.05 NG/DL (0.76-1.46); THYROID STIMULATING HORMONE 0.921 uIU/ML (0.358-3.740)
[2022-08-14 20:34] LABS: HEPATITIS B SURFACE ANTIGEN NEGATIVE (NEGATIVE)
[2022-08-14 21:01] LABS: HEPATITIS B CORE ANTIBODY IGM NEGATIVE (NEGATIVE); HEPATITIS C VIRUS ABY INDEX < 0.0 INDEX (<0.8)
[2022-08-14 21:02] LABS: HIV 1&2 SCREEN CENTAUR NEGATIVE (NEGATIVE)
== END ==
LOC: M RAD 15:54
PROVIDERS: ATTEND Physician Assistant
DX: Z00.01 Encounter for general adult medical examination with abnormal findings (principal); M79.641 Pain in right hand; M54.50 Low back pain, unspecified; F33.1 Major depressive disorder, recurrent, moderate; Z87.81 Personal history of (healed) traumatic fracture; M47.816 Spondylosis without myelopathy or radiculopathy, lumbar region

== ENCOUNTER → 2022-08-22 | Outpatient (CLI) | payer OTHER | LOC: M WHC 13:15 | PROVIDERS: ATTEND Obstetrics & Gynecology | DX: N93.9 Abnormal uterine and vaginal bleeding, unspecified (principal); N83.201 Unspecified ovarian cyst, right side ==

== ENCOUNTER 2022-10-31 02:03 | Emergency (ER) | payer OTHER ==
[~2022-10-31] VITALS: Ht 170.2 cm; Wt 129.1 kg
[2022-10-31] MEDS ORDERED: diphenhydrAMINE 50MG CAP PO ONE (07:25)
[2022-10-31 07:30] VITALS: BP 121/81
== END 2022-10-31 07:36 | disposition home or self-care (01) ==
LOC: M ED 02:03
DX: T78.40XA Allergy, unspecified, initial encounter (principal); E03.9 Hypothyroidism, unspecified; Z98.84 Bariatric surgery status; Z79.899 Other long term (current) drug therapy; Z88.5 Allergy status to narcotic agent

== ENCOUNTER 2023-01-06 18:53 | Inpatient (IN) | payer OTHER ==
[~2023-01-06] VITALS: Ht 170.2 cm; Wt 128.6 kg
[2023-01-06] MEDS ORDERED: AMOX875T2 PO (19:08)
[2023-01-06 20:51] LABS: BASO # 0.1 10^3/uL (0.0-0.2); EOS % 0.4 % (0.0-3.0); HEMATOCRIT 31.5 % (36.0-47.0); LYMPH # 2.5 10^3/uL (1.5-5.0); LYMPH % 31.3 % (24.0-44.0); MEAN CORPUSCULAR HEMOGLOBIN 20.2 pg (27.0-33.0); MEAN CORPUSCULAR HGB CONC 28.6 g/dl (32.0-36.5); MEAN CORPUSCULAR VOLUME 70.8 fl (80.0-96.0); MONO # 0.7 10^3/uL (0.0-0.8); MONO % 8.6 % (2.0-8.0); NEUTROPHILS # 4.6 10^3/uL (1.5-8.5); NEUTROPHILS % 58.4 % (36.0-66.0); PLATELET COUNT, AUTOMATED 364 10^3/uL (150-450); RED BLOOD COUNT 4.45 10^6/uL (4.00-5.40); WHITE BLOOD COUNT 7.8 10^3/uL (4.0-10.0)
[2023-01-06 20:53] LABS: INR 0.9; PROTHROMBIN TIME 12.3 SECONDS (12.5-14.5)
[2023-01-06 20:59] LABS: LIPASE 33 U/L (12-53)
[2023-01-06 21:01] LABS: ALBUMIN 3.6 G/DL (3.2-5.2); ALKALINE PHOSPHATASE 144 U/L (46-116); ALT/SGPT 19 U/L (7.0-40); AST/SGOT 17 U/L (<34); BILIRUBIN,DIRECT 0.1 MG/DL (<0.4); BILIRUBIN,TOTAL 0.3 MG/DL (0.3-1.2); BLOOD UREA NITROGEN 7 MG/DL (9-23); CALCIUM LEVEL 8.5 MG/DL (8.5-10.1); CARBON DIOXIDE LEVEL 26 MMOL/L (20-31); CHLORIDE LEVEL 109 MMOL/L (98-107); CREATININE FOR GFR 0.53 MG/DL (0.55-1.30); GLOMERULAR FILTRATION RATE > 60.0 (>60); GLUCOSE, FASTING 94 MG/DL (60-100); POTASSIUM SERUM 3.9 MMOL/L (3.5-5.1); SODIUM LEVEL 139 MMOL/L (136-145); TOTAL PROTEIN 6.3 G/DL (5.7-8.2)
[2023-01-06] MEDS ORDERED: NS 1,000 ML IV ONE (21:05)
[2023-01-06] MEDS ORDERED: ONDANSETRON 4MG 2ML VIAL IV ONE (21:05)
[2023-01-06] MEDS ORDERED: KETOROLAC 30 MG/ML 1ML VIAL IV ONE (21:05)
[2023-01-06] MEDS ORDERED: PIPERACILLIN/TAZOBACTAM SOD 3.375 GM in D5W MINI-BAG PLUS 50 ML IV ONE (21:15)
[2023-01-06] MEDS ORDERED: ISOVUE-370 76% 100ML VIAL As Ordered ONE (21:35)
[2023-01-06] MEDS ORDERED: MORPHINE 4 MG/ML 1ML VIAL IV ONE (23:00)
[2023-01-06] MEDS ORDERED: ACETAMINOPHEN TAB 650MG DOSE (2X325MG) PO PRN (23:15)
[2023-01-06] MEDS: NS 1,000 ML IV SCH (23:15)
[2023-01-06 23:50] LABS: RSV AMPLIFICATION NEGATIVE (NEGATIVE)
[2023-01-07] VITALS (7 sets, daily range): BP systolic 101–134; BP diastolic 57–77
[2023-01-07] MEDS ORDERED: NICOTINE 14 MG/24 HR TRANSDERMAL TD PRN (00:15)
[2023-01-07] MEDS ORDERED: traZODone 50 MG TAB PO PRN (00:40)
[2023-01-07] MEDS ORDERED: AMOX875T2 PO (00:44)
[2023-01-07] MEDS ORDERED: FERR1TAB8 PO (00:44)
[2023-01-07] MEDS ORDERED: LEVO2TA PO (00:44)
[2023-01-07] MEDS ORDERED: VENL75CA47 PO (00:44)
[2023-01-07] MEDS ORDERED: TRAZ-186 PO (00:44)
[2023-01-07] MEDS ORDERED: VENL37.598 PO (00:44)
[2023-01-07] MEDS ORDERED: HOME MED LIST COMPLETE! XX SCH (00:45)
[2023-01-07] MEDS ORDERED: VANCOMYCIN HCL 1,000 MG, VIAL MATE ADAPTER 1 EACH in NS 250 ML IV ONE ×2 (01:00→02:00)
[2023-01-07] MEDS: FERROUS SULFATE 325MG TAB PO SCH ×2 (01:08→20:38)
[2023-01-07] MEDS: MORPHINE 2 MG/ML 1ML VIAL IV PRN ×3 (01:13→13:43)
[2023-01-07] MEDS: PIPERACILLIN/TAZOBACTAM SOD 3.375 GM in D5W MINI-BAG PLUS 50 ML IV SCH ×4 (04:44→20:38)
[2023-01-07] MEDS: LEVOTHYROXINE 100MCG TABLET (0.1MG) PO SCH (05:25)
[2023-01-07 06:28] LABS: HEMATOCRIT 27.4 % (36.0-47.0); HEMOGLOBIN 7.8 g/dl (12.0-15.5); MEAN CORPUSCULAR HEMOGLOBIN 20.1 pg (27.0-33.0); MEAN CORPUSCULAR HGB CONC 28.5 g/dl (32.0-36.5); MEAN CORPUSCULAR VOLUME 70.4 fl (80.0-96.0); PLATELET COUNT, AUTOMATED 316 10^3/uL (150-450); RED BLOOD COUNT 3.89 10^6/uL (4.00-5.40); WHITE BLOOD COUNT 7.3 10^3/uL (4.0-10.0)
[2023-01-07 06:56] LABS: BLOOD UREA NITROGEN 7 MG/DL (9-23); CALCIUM LEVEL 7.9 MG/DL (8.5-10.1); CARBON DIOXIDE LEVEL 25 MMOL/L (20-31); CHLORIDE LEVEL 109 MMOL/L (98-107); CREATININE FOR GFR 0.58 MG/DL (0.55-1.30); GLOMERULAR FILTRATION RATE > 60.0 (>60); GLUCOSE, FASTING 101 MG/DL (60-100); POTASSIUM SERUM 4.2 MMOL/L (3.5-5.1); SODIUM LEVEL 140 MMOL/L (136-145)
[2023-01-07] MEDS ORDERED: VANCOMYCIN HCL 1,000 MG, VIAL MATE ADAPTER 1 EACH in NS 250 ML IV SCH (09:00)
[2023-01-07] MEDS ORDERED: medroxyPROGESTERone 5MG TABLET PO SCH (09:00)
[2023-01-07] MEDS: VENLAFAXINE **XR** 75MG CAPSULE PO SCH (09:45)
[2023-01-07] MEDS: NS 1,000 ML IV SCH (09:46)
[2023-01-07] MEDS: VENLAFAXINE **XR** 37.5 MG CAPSULE PO SCH (10:01)
[2023-01-07] MEDS: ONDANSETRON 4MG 2ML VIAL IV PRN ×2 (11:59→17:51)
[2023-01-07] MEDS ORDERED: KETOROLAC 30 MG/ML 1ML VIAL IV PRN (13:25)
[2023-01-07 13:37] LABS: IRON (FE) 64 UG/DL (50-170); PERCENT SATURATION 17.8 % (13.2-45.0); TOTAL IRON BINDING CAPACITY 359 UG/DL (250-425)
[2023-01-07 13:39] LABS: FERRITIN 2.3 NG/ML (7.3-270.7)
[2023-01-07 13:40] LABS: FOLATE 5.66 NG/ML (>5.4); VITAMIN B12 LEVEL 391 PG/ML (211-911)
[2023-01-07] MEDS: ACETAMINOPHEN 500 MG TAB PO SCH ×2 (13:52→17:52)
[2023-01-07] MEDS ORDERED: FERRIC CARBOXYMALTOSE INJ 750 MG in NS 250 ML (>50kg) IV ONE ×3 (16:00)
[2023-01-07] MEDS ORDERED: FERRIC CARBOXYMALTOSE INJ 1,000 MG in NS 250 ML IV ONE (16:00)
[2023-01-07] MEDS ORDERED: RIVAROXABAN 10MG TAB (XARELTO) PO SCH (18:00)
[2023-01-07] MEDS: medroxyPROGESTERone 5MG TABLET PO SCH (20:38)
[2023-01-08 00:25] VITALS: BP 145/77
[2023-01-08] MEDS: ONDANSETRON 4MG 2ML VIAL IV PRN ×2 (00:46→20:07)
[2023-01-08] MEDS: ACETAMINOPHEN 500 MG TAB PO SCH ×2 (00:47→05:57)
[2023-01-08 00:48] VITALS: BP 125/73
[2023-01-08 01:45] VITALS: BP 128/73
[2023-01-08] MEDS: KETOROLAC 30 MG/ML 1ML VIAL IV PRN (02:06)
[2023-01-08] MEDS: PIPERACILLIN/TAZOBACTAM SOD 3.375 GM in D5W MINI-BAG PLUS 50 ML IV SCH (02:06)
[2023-01-08 05:49] LABS: BASO # 0.1 10^3/uL (0.0-0.2); EOS # 0.1 10^3/uL (0.0-0.5); EOS % 0.7 % (0.0-3.0); HEMATOCRIT 27.8 % (36.0-47.0); HEMOGLOBIN 8.2 g/dl (12.0-15.5); LYMPH # 2.3 10^3/uL (1.5-5.0); LYMPH % 33.8 % (24.0-44.0); MEAN CORPUSCULAR HGB CONC 29.5 g/dl (32.0-36.5); MEAN CORPUSCULAR VOLUME 71.1 fl (80.0-96.0); MONO # 0.4 10^3/uL (0.0-0.8); MONO % 6.4 % (2.0-8.0); NEUTROPHILS % 57.8 % (36.0-66.0); PLATELET COUNT, AUTOMATED 290 10^3/uL (150-450); RED BLOOD COUNT 3.91 10^6/uL (4.00-5.40); WHITE BLOOD COUNT 6.8 10^3/uL (4.0-10.0)
[2023-01-08] MEDS: LEVOTHYROXINE 100MCG TABLET (0.1MG) PO SCH (05:56)
[2023-01-08 06:00] VITALS: BP 124/73
[2023-01-08 06:18] LABS: ALBUMIN 2.9 G/DL (3.2-5.2); ALKALINE PHOSPHATASE 160 U/L (46-116); ALT/SGPT 171 U/L (7.0-40); AST/SGOT 178 U/L (<34); BILIRUBIN,TOTAL 0.8 MG/DL (0.3-1.2); BLOOD UREA NITROGEN 7 MG/DL (9-23); CALCIUM LEVEL 8.7 MG/DL (8.5-10.1); CARBON DIOXIDE LEVEL 26 MMOL/L (20-31); CHLORIDE LEVEL 107 MMOL/L (98-107); CREATININE FOR GFR 0.59 MG/DL (0.55-1.30); GLOMERULAR FILTRATION RATE > 60.0 (>60); GLUCOSE, FASTING 107 MG/DL (60-100); POTASSIUM SERUM 4.1 MMOL/L (3.5-5.1); SODIUM LEVEL 138 MMOL/L (136-145); TOTAL PROTEIN 5.1 G/DL (5.7-8.2)
[2023-01-08 08:09] LABS: HEPATITIS B SURFACE ANTIGEN NEGATIVE (NEGATIVE)
[2023-01-08] MEDS: VENLAFAXINE **XR** 75MG CAPSULE PO SCH (08:16)
[2023-01-08] MEDS: medroxyPROGESTERone 5MG TABLET PO SCH (08:18)
[2023-01-08] MEDS: VENLAFAXINE **XR** 37.5 MG CAPSULE PO SCH (08:19)
[2023-01-08 08:30] LABS: HEPATITIS B CORE ANTIBODY IGM NEGATIVE (NEGATIVE); HEPATITIS C VIRUS ABY INDEX < 0.0 INDEX (<0.8)
[2023-01-08 14:00] VITALS: BP 131/74
[2023-01-08] MEDS: FERROUS SULFATE 325MG TAB PO SCH (20:07)
[2023-01-08 21:38] VITALS: BP 127/68
[2023-01-09 05:50] LABS: BASO # 0.1 10^3/uL (0.0-0.2); BASO % 0.8 % (0.0-1.0); EOS % 0.6 % (0.0-3.0); HEMATOCRIT 26.8 % (36.0-47.0); HEMOGLOBIN 7.9 g/dl (12.0-15.5); LYMPH # 2.7 10^3/uL (1.5-5.0); LYMPH % 37.8 % (24.0-44.0); MEAN CORPUSCULAR HEMOGLOBIN 20.9 pg (27.0-33.0); MEAN CORPUSCULAR HGB CONC 29.5 g/dl (32.0-36.5); MEAN CORPUSCULAR VOLUME 70.9 fl (80.0-96.0); MONO # 0.6 10^3/uL (0.0-0.8); MONO % 8.2 % (2.0-8.0); NEUTROPHILS # 3.7 10^3/uL (1.5-8.5); NEUTROPHILS % 52.3 % (36.0-66.0); PLATELET COUNT, AUTOMATED 286 10^3/uL (150-450); RED BLOOD COUNT 3.78 10^6/uL (4.00-5.40); WHITE BLOOD COUNT 7.1 10^3/uL (4.0-10.0)
[2023-01-09] MEDS: LEVOTHYROXINE 100MCG TABLET (0.1MG) PO SCH (05:53)
[2023-01-09 06:13] VITALS: BP 109/93
[2023-01-09 06:31] LABS: ALBUMIN 3.1 G/DL (3.2-5.2); ALKALINE PHOSPHATASE 148 U/L (46-116); ALT/SGPT 117 U/L (7.0-40); AST/SGOT 60 U/L (<34); BILIRUBIN,TOTAL 0.3 MG/DL (0.3-1.2); BLOOD UREA NITROGEN 7 MG/DL (9-23); CALCIUM LEVEL 8.2 MG/DL (8.5-10.1); CARBON DIOXIDE LEVEL 27 MMOL/L (20-31); CHLORIDE LEVEL 107 MMOL/L (98-107); GLOMERULAR FILTRATION RATE > 60.0 (>60); GLUCOSE, FASTING 88 MG/DL (60-100); POTASSIUM SERUM 3.9 MMOL/L (3.5-5.1); SODIUM LEVEL 141 MMOL/L (136-145); TOTAL PROTEIN 5.4 G/DL (5.7-8.2)
[2023-01-09] MEDS: VENLAFAXINE **XR** 75MG CAPSULE PO SCH (08:44)
[2023-01-09] MEDS: VENLAFAXINE **XR** 37.5 MG CAPSULE PO SCH (08:45)
[2023-01-09] MEDS: KETOROLAC 30 MG/ML 1ML VIAL IV PRN (08:46)
[2023-01-09] MEDS ORDERED: medroxyPROGESTERone 5MG TABLET PO SCH (09:00)
[2023-01-09] MEDS ORDERED: PROV10TA PO (09:06)
[2023-01-09] MEDS ORDERED: NICO14PA TD (09:06)
[2023-01-09 09:51] VITALS: BP 129/69
[2023-01-09 10:06] VITALS: BP 121/65
[2023-01-09 10:53] VITALS: BP 119/63
[2023-01-09 11:56] VITALS: BP 125/84
[2023-01-09 14:00] VITALS: BP 127/83
== END 2023-01-09 13:30 | disposition home or self-care (01) | DRG 254 ==
LOC: M ED 18:53 → M ED INP 23:12 → M MSPAV 01-07 00:35
PROVIDERS: ADMIT Internal Medicine; ATTEND Student in an Organized Health Care Education/Training Program
PROC: 30233N1 Transfusion of Nonautologous Red Blood Cells into Peripheral Vein, Percutaneous Approach (ICD-10-PCS; principal; 2023-01-07)
DX: K60.4 Rectal fistula (principal); Z68.41 Body mass index [BMI] 40.0-44.9, adult; D50.0 Iron deficiency anemia secondary to blood loss (chronic); F17.290 Nicotine dependence, other tobacco product, uncomplicated; F41.8 Other specified anxiety disorders; E03.9 Hypothyroidism, unspecified; Z85.850 Personal history of malignant neoplasm of thyroid; N93.9 Abnormal uterine and vaginal bleeding, unspecified; E66.9 Obesity, unspecified; Z79.890 Hormone replacement therapy; Z79.2 Long term (current) use of antibiotics; Z79.899 Other long term (current) drug therapy; Z88.1 Allergy status to other antibiotic agents; Z88.8 Allergy status to other drugs, medicaments and biological substances; Z98.41 Cataract extraction status, right eye; Z97.5 Presence of (intrauterine) contraceptive device; Z90.49 Acquired absence of other specified parts of digestive tract; Z20.822 Contact with and (suspected) exposure to COVID-19

== ENCOUNTER 2023-01-20 02:59 | Emergency (ER) | payer OTHER ==
[~2023-01-20] VITALS: Ht 170.2 cm; Wt 126.6 kg
[~2023-01-20 02:59] MED LIST changes: +AMOX875T2 PO; +FERR1TAB8 PO; +LEVO2TA PO; +NICO14PA TD; +PROV10TA PO; +TRAZ-186 PO; +VENL75CA47 PO
[2023-01-20 03:33] LABS: BASO # 0.1 10^3/uL (0.0-0.2); BASO % 0.9 % (0.0-1.0); EOS % 0.2 % (0.0-3.0); HEMATOCRIT 35.9 % (36.0-47.0); LYMPH # 3.4 10^3/uL (1.5-5.0); LYMPH % 37.7 % (24.0-44.0); MEAN CORPUSCULAR HEMOGLOBIN 23.2 pg (27.0-33.0); MEAN CORPUSCULAR HGB CONC 30.6 g/dl (32.0-36.5); MEAN CORPUSCULAR VOLUME 75.6 fl (80.0-96.0); MONO # 0.7 10^3/uL (0.0-0.8); MONO % 7.4 % (2.0-8.0); NEUTROPHILS # 4.8 10^3/uL (1.5-8.5); NEUTROPHILS % 53.5 % (36.0-66.0); PLATELET COUNT, AUTOMATED 295 10^3/uL (150-450); RED BLOOD COUNT 4.75 10^6/uL (4.00-5.40)
[2023-01-20 03:52] LABS: LIPASE 41 U/L (12-53)
[2023-01-20 03:58] LABS: ALKALINE PHOSPHATASE 147 U/L (46-116); ALT/SGPT 15 U/L (7.0-40); AST/SGOT 13 U/L (<34); BILIRUBIN,DIRECT 0.2 MG/DL (<0.4); BILIRUBIN,TOTAL 0.6 MG/DL (0.3-1.2); BLOOD UREA NITROGEN 8 MG/DL (9-23); CALCIUM LEVEL 8.7 MG/DL (8.5-10.1); CARBON DIOXIDE LEVEL 23 MMOL/L (20-31); CHLORIDE LEVEL 108 MMOL/L (98-107); CREATININE FOR GFR 0.51 MG/DL (0.55-1.30); GLOMERULAR FILTRATION RATE > 60.0 (>60); GLUCOSE, FASTING 81 MG/DL (60-100); POTASSIUM SERUM 4.2 MMOL/L (3.5-5.1); SODIUM LEVEL 138 MMOL/L (136-145); TOTAL PROTEIN 6.5 G/DL (5.7-8.2)
[2023-01-20] MEDS ORDERED: ONDANSETRON 4MG 2ML VIAL IV ONE (04:00)
[2023-01-20] MEDS: MORPHINE 4 MG/ML 1ML VIAL IV PRN ×2 (04:02→05:17)
[2023-01-20 04:21] LABS: HCG, SERUM QUALITATIVE NEGATIVE (NEGATIVE)
[2023-01-20] MEDS: GASTROGRAFIN SOLUTION 30ML PO SCH ×2 (04:31→05:00)
[2023-01-20] MEDS ORDERED: ISOVUE-370 76% 100ML VIAL As Ordered ONE (05:39)
[2023-01-20] MEDS ORDERED: KETOROLAC 30 MG/ML 1ML VIAL IV ONE (08:25)
[2023-01-20] MEDS ORDERED: PERCOCET 5MG/325MG TAB PO ONE (11:10)
[2023-01-20] MEDS ORDERED: PERC5TAB12 PO (11:18)
[2023-01-20] MEDS ORDERED: ONDA4TAB6 PO (11:18)
[2023-01-20 11:32] VITALS: BP 154/82
== END 2023-01-20 11:34 | disposition home or self-care (01) ==
LOC: M ED 02:59
DX: R10.84 Generalized abdominal pain (principal); Z98.84 Bariatric surgery status; F17.290 Nicotine dependence, other tobacco product, uncomplicated; Z79.899 Other long term (current) drug therapy; Z88.5 Allergy status to narcotic agent
CPT/HCPCS: 74177; 76830; 76856; 80048; 80076; 81001; 83690; 84703; 85025; 87086; 93041; 93976; 96374; 96375; 96376; 99284; J1885; J2270; J2405

== ENCOUNTER 2023-01-25 19:44 | Emergency (ER) | payer MEDICAID, OTHER ==
[~2023-01-25] VITALS: Ht 170.2 cm; Wt 127.7 kg
[~2023-01-25 19:44] MED LIST changes: +ONDA4TAB6 PO; +PERC5TAB12 PO
[2023-01-25] MEDS ORDERED: ONDANSETRON 4MG 2ML VIAL IV ONE (21:45)
[2023-01-25] MEDS ORDERED: KETOROLAC 30 MG/ML 1ML VIAL IV ONE (21:45)
[2023-01-25] MEDS ORDERED: NS 1,000 ML IV ONE (21:45)
[2023-01-25 22:22] LABS: BASO # 0.1 10^3/uL (0.0-0.2); BASO % 0.9 % (0.0-1.0); EOS % 0.3 % (0.0-3.0); HEMATOCRIT 35.9 % (36.0-47.0); HEMOGLOBIN 10.8 g/dl (12.0-15.5); LYMPH # 2.2 10^3/uL (1.5-5.0); LYMPH % 33.2 % (24.0-44.0); MEAN CORPUSCULAR HEMOGLOBIN 23.4 pg (27.0-33.0); MEAN CORPUSCULAR HGB CONC 30.1 g/dl (32.0-36.5); MEAN CORPUSCULAR VOLUME 77.7 fl (80.0-96.0); MONO # 0.6 10^3/uL (0.0-0.8); MONO % 8.2 % (2.0-8.0); NEUTROPHILS # 3.8 10^3/uL (1.5-8.5); NEUTROPHILS % 57.1 % (36.0-66.0); PLATELET COUNT, AUTOMATED 253 10^3/uL (150-450); RED BLOOD COUNT 4.62 10^6/uL (4.00-5.40); WHITE BLOOD COUNT 6.7 10^3/uL (4.0-10.0)
[2023-01-25 22:41] LABS: LIPASE 28 U/L (12-53)
[2023-01-25 22:43] LABS: ALBUMIN 3.5 G/DL (3.2-5.2); ALKALINE PHOSPHATASE 127 U/L (46-116); ALT/SGPT 19 U/L (7.0-40); AST/SGOT 14 U/L (<34); BILIRUBIN,DIRECT 0.2 MG/DL (<0.4); BILIRUBIN,TOTAL 0.5 MG/DL (0.3-1.2); BLOOD UREA NITROGEN 8 MG/DL (9-23); CALCIUM LEVEL 7.9 MG/DL (8.5-10.1); CARBON DIOXIDE LEVEL 24 MMOL/L (20-31); CHLORIDE LEVEL 111 MMOL/L (98-107); CREATININE FOR GFR 0.46 MG/DL (0.55-1.30); GLOMERULAR FILTRATION RATE > 60.0 (>60); GLUCOSE, FASTING 85 MG/DL (60-100); POTASSIUM SERUM 4.3 MMOL/L (3.5-5.1); SODIUM LEVEL 141 MMOL/L (136-145); TOTAL PROTEIN 5.9 G/DL (5.7-8.2)
[2023-01-25] MEDS ORDERED: MORPHINE 4 MG/ML 1ML VIAL IV PRN (23:00)
[2023-01-25] MEDS ORDERED: ISOVUE-370 76% 100ML VIAL As Ordered ONE (23:21)
[2023-01-26] MEDS ORDERED: OXYCODONE/APAP 5MG/325MG(HOME DOSE PACK) PO ONE (01:00)
[2023-01-26] MEDS ORDERED: PROV10TA PO (01:14)
[2023-01-26 01:41] VITALS: BP 127/82
== END 2023-01-26 01:41 | disposition home or self-care (01) ==
LOC: EDBD 19:44 → M ED 19:44
DX: R10.9 Unspecified abdominal pain (principal); N93.9 Abnormal uterine and vaginal bleeding, unspecified; D64.9 Anemia, unspecified; N36.0 Urethral fistula; Z88.5 Allergy status to narcotic agent; Z88.8 Allergy status to other drugs, medicaments and biological substances; F17.200 Nicotine dependence, unspecified, uncomplicated; Z79.890 Hormone replacement therapy; Z79.899 Other long term (current) drug therapy
CPT/HCPCS: 74021; 74177; 80048; 80076; 83605; 83690; 85025; 96374; 96375; 99284; J1885; J2270; J2405; Q9967

== ENCOUNTER → 2023-02-07 | Outpatient (CLI) | payer OTHER | LOC: M RAD 13:31 | PROVIDERS: ATTEND Family Medicine | DX: M54.50 Low back pain, unspecified (principal) ==

== ENCOUNTER 2023-02-22 09:09 | Emergency (ER) | payer OTHER ==
[~2023-02-22] VITALS: Ht 170.2 cm; Wt 129.9 kg
[2023-02-22] MEDS ORDERED: VITA500T11 (09:33)
[2023-02-22] MEDS ORDERED: LEVO200T4 (09:33)
[2023-02-22] MEDS ORDERED: D 50CAP2 (09:33)
[2023-02-22] MEDS ORDERED: FLUC150T9 (09:33)
[2023-02-22] MEDS ORDERED: FOLI1TAB11 (09:33)
[2023-02-22] MEDS ORDERED: ONDANSETRON 4MG 2ML VIAL IV ONE (12:05)
[2023-02-22] MEDS ORDERED: KETOROLAC 30 MG/ML 1ML VIAL IV ONE (12:05)
[2023-02-22] MEDS ORDERED: NS 1,000 ML IV ONE (12:05)
[2023-02-22 12:44] LABS: BASO # 0.1 10^3/uL (0.0-0.2); BASO % 0.7 % (0.0-1.0); EOS % 0.1 % (0.0-3.0); HEMATOCRIT 40.4 % (36.0-47.0); HEMOGLOBIN 12.3 g/dl (12.0-15.5); LYMPH # 2.1 10^3/uL (1.5-5.0); LYMPH % 31.1 % (24.0-44.0); MEAN CORPUSCULAR HEMOGLOBIN 24.6 pg (27.0-33.0); MEAN CORPUSCULAR HGB CONC 30.4 g/dl (32.0-36.5); MEAN CORPUSCULAR VOLUME 80.8 fl (80.0-96.0); MONO # 0.4 10^3/uL (0.0-0.8); NEUTROPHILS # 4.2 10^3/uL (1.5-8.5); PLATELET COUNT, AUTOMATED 254 10^3/uL (150-450); WHITE BLOOD COUNT 6.8 10^3/uL (4.0-10.0)
[2023-02-22 13:16] LABS: BLOOD UREA NITROGEN 8 MG/DL (9-23); CALCIUM LEVEL 8.7 MG/DL (8.5-10.1); CARBON DIOXIDE LEVEL 25 MMOL/L (20-31); CHLORIDE LEVEL 107 MMOL/L (98-107); CREATININE FOR GFR 0.57 MG/DL (0.55-1.30); GLOMERULAR FILTRATION RATE > 60.0 (>60); GLUCOSE, FASTING 82 MG/DL (60-100); POTASSIUM SERUM 4.2 MMOL/L (3.5-5.1); SODIUM LEVEL 140 MMOL/L (136-145)
[2023-02-22 13:49] LABS: HCG, SERUM QUALITATIVE NEGATIVE (NEGATIVE)
[2023-02-22] MEDS ORDERED: AMOX875T2 PO (14:06)
[2023-02-22] MEDS ORDERED: KETO10TAB PO (14:06)
[2023-02-22 14:32] VITALS: BP 125/74
== END 2023-02-22 14:34 | disposition home or self-care (01) ==
LOC: M ED 09:09 → EEVIPCON 09:09 → M ED 14:34
DX: K60.4 Rectal fistula (principal); E03.9 Hypothyroidism, unspecified; Z79.899 Other long term (current) drug therapy; Z88.5 Allergy status to narcotic agent
CPT/HCPCS: 80048; 83605; 84703; 85025; 86850; 86900; 86901; 87040; 87070; 87077; 87186; 87205; 96361; 96374; 96375; 99284; J1885; J2405

== ENCOUNTER → 2023-03-03 | Outpatient (REF) | payer OTHER ==
[~2023-03-03] MED LIST changes: +D 50CAP2; +FLUC150T9; +FOLI1TAB11; +KETO10TAB PO; +LEVO200T4; +VANC125C3 PO; +VITA500T11
== END ==
LOC: M LAB REF 12:58
PROVIDERS: ATTEND Physician Assistant Medical
DX: R19.7 Diarrhea, unspecified (principal)

== ENCOUNTER 2023-03-04 05:23 | Emergency (ER) | payer OTHER ==
[~2023-03-04] VITALS: Ht 170.2 cm; Wt 129.6 kg
[~2023-03-04 05:23] MED LIST changes: -VANC125C3 PO
[2023-03-04] MEDS ORDERED: NS 1,000 ML IV ONE (06:20)
[2023-03-04] MEDS ORDERED: MORPHINE 4 MG/ML 1ML VIAL IV ONE (07:00)
[2023-03-04 07:31] LABS: BASO # 0.1 10^3/uL (0.0-0.2); BASO % 0.8 % (0.0-1.0); EOS % 0.3 % (0.0-3.0); HEMOGLOBIN 12.2 g/dl (12.0-15.5); LYMPH # 2.1 10^3/uL (1.5-5.0); LYMPH % 27.6 % (24.0-44.0); MEAN CORPUSCULAR HEMOGLOBIN 25.2 pg (27.0-33.0); MEAN CORPUSCULAR HGB CONC 30.5 g/dl (32.0-36.5); MEAN CORPUSCULAR VOLUME 82.5 fl (80.0-96.0); MONO # 0.5 10^3/uL (0.0-0.8); MONO % 6.6 % (2.0-8.0); NEUTROPHILS # 4.9 10^3/uL (1.5-8.5); NEUTROPHILS % 64.6 % (36.0-66.0); PLATELET COUNT, AUTOMATED 333 10^3/uL (150-450); RED BLOOD COUNT 4.85 10^6/uL (4.00-5.40); WHITE BLOOD COUNT 7.6 10^3/uL (4.0-10.0)
[2023-03-04 08:05] VITALS: BP 127/81
[2023-03-04] MEDS ORDERED: VANCOMYCIN ORAL SOL 250MG/5ML ORAL SYRINGE PO ONE (08:50)
[2023-03-04] MEDS ORDERED: ONDA4TAB6 PO (08:55)
[2023-03-04] MEDS ORDERED: VANC125C3 PO (08:55)
[2023-03-04] MEDS ORDERED: PERC5TAB12 PO (08:55)
== END 2023-03-04 10:04 | disposition home or self-care (01) ==
LOC: M ED 05:23
DX: A04.72 Enterocolitis due to Clostridium difficile, not specified as recurrent (principal); E03.9 Hypothyroidism, unspecified; K04.7 Periapical abscess without sinus; G47.33 Obstructive sleep apnea (adult) (pediatric); Z88.8 Allergy status to other drugs, medicaments and biological substances; Z79.899 Other long term (current) drug therapy

== ENCOUNTER 2023-03-07 16:50 | Emergency (ER) | payer OTHER ==
[~2023-03-07] VITALS: Ht 170.2 cm; Wt 128.7 kg
[~2023-03-07 16:50] MED LIST changes: +VANC125C3 PO
[2023-03-07 16:51] VITALS: BP 138/92
[2023-03-07 17:33] LABS: BASO % 0.6 % (0.0-1.0); EOS % 0.1 % (0.0-3.0); HEMATOCRIT 38.9 % (36.0-47.0); HEMOGLOBIN 12.1 g/dl (12.0-15.5); LYMPH # 2.2 10^3/uL (1.5-5.0); LYMPH % 31.6 % (24.0-44.0); MEAN CORPUSCULAR HEMOGLOBIN 25.4 pg (27.0-33.0); MEAN CORPUSCULAR HGB CONC 31.1 g/dl (32.0-36.5); MEAN CORPUSCULAR VOLUME 81.7 fl (80.0-96.0); MONO # 0.3 10^3/uL (0.0-0.8); MONO % 4.3 % (2.0-8.0); NEUTROPHILS # 4.4 10^3/uL (1.5-8.5); NEUTROPHILS % 63.1 % (36.0-66.0); PLATELET COUNT, AUTOMATED 270 10^3/uL (150-450); RED BLOOD COUNT 4.76 10^6/uL (4.00-5.40)
[2023-03-07 17:59] LABS: ALBUMIN 3.4 G/DL (3.2-5.2); BILIRUBIN,DIRECT 0.1 MG/DL (<0.4); BILIRUBIN,TOTAL 0.4 MG/DL (0.3-1.2); MAGNESIUM LEVEL 1.8 MG/DL (1.8-2.4); TOTAL PROTEIN 6.2 G/DL (5.7-8.2)
[2023-03-07] MEDS ORDERED: NS 1,000 ML IV ONE (18:05)
[2023-03-07] MEDS ORDERED: ONDANSETRON 4MG 2ML VIAL IV ONE (18:05)
[2023-03-07] MEDS ORDERED: DICYCLOMINE 10 MG CAP PO ONE (18:05)
[2023-03-07] MEDS ORDERED: DICY20TA20 PO (19:50)
[2023-03-07] MEDS ORDERED: CVS1CHW13 PO (19:50)
== END 2023-03-07 20:28 | disposition home or self-care (01) ==
LOC: M ED 16:50
DX: A04.72 Enterocolitis due to Clostridium difficile, not specified as recurrent (principal); K21.9 Gastro-esophageal reflux disease without esophagitis; E03.9 Hypothyroidism, unspecified; Z98.84 Bariatric surgery status; F17.290 Nicotine dependence, other tobacco product, uncomplicated; Z79.899 Other long term (current) drug therapy; Z88.5 Allergy status to narcotic agent
CPT/HCPCS: 80047; 80076; 81001; 83690; 83735; 85025; 96361; 96374; 99284; J2405

== ENCOUNTER 2023-04-17 10:59 | Day surgery (SDC) | payer OTHER ==
[~2023-04-17] VITALS: Ht 170.2 cm; Wt 129.1 kg
[~2023-04-17 10:59] MED LIST changes: +CVS1CHW13 PO; -D 50CAP2; +D 50CAP2 PO; +DICY20TA20 PO; +ESTA0.25 PO; -FOLI1TAB11; +FOLI1TAB11 PO; +NS 1,000 ML IV ONE; +SUCR1ORA PO; -VITA500T11; +VITA500T11 PO
[2023-04-17] MEDS ORDERED: propofoL 200 MG/20 ML VIAL As Ordered ONE ×3 (13:13→13:31)
[2023-04-17 14:28] VITALS: BP 149/73; TEMP 97; O2SAT 99
== END 2023-04-17 14:33 | disposition home or self-care (01) ==
LOC: M OPP 10:59
PROVIDERS: ATTEND Internal Medicine Gastroenterology
DX: K60.5 Anorectal fistula (principal); K63.5 Polyp of colon; K44.9 Diaphragmatic hernia without obstruction or gangrene; R10.84 Generalized abdominal pain; Z98.84 Bariatric surgery status

== ENCOUNTER → 2023-04-18 | Outpatient (CLI) | payer OTHER ==
[~2023-04-18] MED LIST changes: +E-Z-PAQUE 96% w/w SUSP 176GM BTL As Ordered ONE; -NS 1,000 ML IV ONE
== END ==
LOC: M RAD 08:10
PROVIDERS: ATTEND Internal Medicine Gastroenterology
DX: R19.4 Change in bowel habit (principal)

== ENCOUNTER 2023-05-05 23:22 | Emergency (ER) | payer OTHER ==
[~2023-05-05] VITALS: Ht 170.2 cm; Wt 131.4 kg
[2023-05-05 23:22] VITALS: TEMP 97.7
[~2023-05-05 23:22] MED LIST changes: -E-Z-PAQUE 96% w/w SUSP 176GM BTL As Ordered ONE
[2023-05-06 01:03] LABS: BASO # 0.1 10^3/uL (0.0-0.2); BASO % 0.7 % (0.0-1.0); EOS # 0.1 10^3/uL (0.0-0.5); EOS % 1.6 % (0.0-3.0); HEMATOCRIT 37.7 % (36.0-47.0); HEMOGLOBIN 11.7 g/dl (12.0-15.5); LYMPH # 1.8 10^3/uL (1.5-5.0); LYMPH % 26.4 % (24.0-44.0); MEAN CORPUSCULAR HEMOGLOBIN 25.3 pg (27.0-33.0); MEAN CORPUSCULAR VOLUME 81.6 fl (80.0-96.0); MONO # 0.7 10^3/uL (0.0-0.8); MONO % 9.8 % (2.0-8.0); NEUTROPHILS # 4.2 10^3/uL (1.5-8.5); NEUTROPHILS % 61.1 % (36.0-66.0); PLATELET COUNT, AUTOMATED 276 10^3/uL (150-450); RED BLOOD COUNT 4.62 10^6/uL (4.00-5.40); WHITE BLOOD COUNT 6.8 10^3/uL (4.0-10.0)
[2023-05-06] MEDS ORDERED: ACETAMINOPHEN 500 MG TAB PO ONE (01:10)
[2023-05-06 01:24] LABS: LIPASE 27 U/L (12-53)
[2023-05-06 01:26] LABS: ALBUMIN 3.8 G/DL (3.2-5.2); ALKALINE PHOSPHATASE 142 U/L (46-116); ALT/SGPT 14 U/L (7.0-40); AST/SGOT < 8 U/L (<34); BILIRUBIN,DIRECT 0.3 MG/DL (<0.4); BILIRUBIN,TOTAL 0.9 MG/DL (0.3-1.2); BLOOD UREA NITROGEN 8 MG/DL (9-23); CALCIUM LEVEL 8.6 MG/DL (8.5-10.1); CARBON DIOXIDE LEVEL 23 MMOL/L (20-31); CHLORIDE LEVEL 106 MMOL/L (98-107); CREATININE FOR GFR 0.56 MG/DL (0.55-1.30); GLOMERULAR FILTRATION RATE > 60.0 (>60); GLUCOSE, FASTING 95 MG/DL (60-100); POTASSIUM SERUM 3.8 MMOL/L (3.5-5.1); SODIUM LEVEL 136 MMOL/L (136-145); TOTAL PROTEIN 6.4 G/DL (5.7-8.2)
[2023-05-06 01:34] LABS: HCG, SERUM QUALITATIVE NEGATIVE (NEGATIVE)
[2023-05-06 01:52] LABS: CK-MB VALUE MASS < 1.0 NG/ML (<3.6)
[2023-05-06 01:54] LABS: CPK CREATINE PHOSPHOKINASE 63 U/L (34-145); MB/CK RELATIVE INDEX 1.58 (< OR =4)
[2023-05-06 05:30] VITALS: BP 132/72
[2023-05-06 05:48] VITALS: O2SAT 97
== END 2023-05-06 06:09 | disposition home or self-care (01) ==
LOC: M ED 23:22
DX: R07.9 Chest pain, unspecified (principal); B34.8 Other viral infections of unspecified site; Z85.850 Personal history of malignant neoplasm of thyroid; Z98.84 Bariatric surgery status; Z79.899 Other long term (current) drug therapy; Z88.5 Allergy status to narcotic agent

== ENCOUNTER 2023-05-20 01:41 | Emergency (ER) | payer OTHER ==
[~2023-05-20] VITALS: Ht 170.2 cm; Wt 133.0 kg
[~2023-05-20 01:41] MED LIST changes: +DICY-61 PO; -DICY10CA13 PO
[2023-05-20 07:19] VITALS: BP 132/76; TEMP 97.9; O2SAT 99
[2023-05-20] MEDS ORDERED: ALBUTEROL 90 MCG/ACT 8GM HFA INHALER INH ONE (07:20)
[2023-05-20] MEDS ORDERED: BENZONATATE 100MG CAPSULE PO ONE (07:20)
[2023-05-20] MEDS ORDERED: MUCI600T31 PO (07:22)
[2023-05-20] MEDS ORDERED: VENTAER INH (07:22)
[2023-05-20] MEDS ORDERED: AMOX875T2 PO (07:22)
[2023-05-20] MEDS ORDERED: BENZ200C70 PO (07:22)
== END 2023-05-20 08:30 | disposition home or self-care (01) ==
LOC: M ED 01:41
DX: J06.9 Acute upper respiratory infection, unspecified (principal); J20.9 Acute bronchitis, unspecified; J01.00 Acute maxillary sinusitis, unspecified; Z79.899 Other long term (current) drug therapy; Z88.5 Allergy status to narcotic agent

== ENCOUNTER 2023-06-03 23:00 | Emergency (ER) | payer OTHER ==
[~2023-06-03] VITALS: Ht 170.2 cm; Wt 111.0 kg
[~2023-06-03 23:00] MED LIST changes: +BENZ200C70 PO; +MUCI600T31 PO; +VENTAER INH
[2023-06-03 23:27] VITALS: TEMP 98.4
[2023-06-04 00:09] LABS: BASO # 0.1 10^3/uL (0.0-0.2); BASO % 0.9 % (0.0-1.0); EOS # 0.1 10^3/uL (0.0-0.5); EOS % 1.9 % (0.0-3.0); HEMATOCRIT 37.6 % (36.0-47.0); HEMOGLOBIN 11.5 g/dl (12.0-15.5); LYMPH # 2.4 10^3/uL (1.5-5.0); LYMPH % 35.7 % (24.0-44.0); MEAN CORPUSCULAR HEMOGLOBIN 25.2 pg (27.0-33.0); MEAN CORPUSCULAR HGB CONC 30.6 g/dl (32.0-36.5); MEAN CORPUSCULAR VOLUME 82.3 fl (80.0-96.0); MONO # 0.5 10^3/uL (0.0-0.8); MONO % 7.4 % (2.0-8.0); NEUTROPHILS # 3.6 10^3/uL (1.5-8.5); NEUTROPHILS % 53.8 % (36.0-66.0); PLATELET COUNT, AUTOMATED 305 10^3/uL (150-450); RED BLOOD COUNT 4.57 10^6/uL (4.00-5.40); WHITE BLOOD COUNT 6.7 10^3/uL (4.0-10.0)
[2023-06-04] MEDS ORDERED: ISOVUE-370 76% 100ML VIAL As Ordered ONE (01:04)
[2023-06-04] MEDS ORDERED: OXYCODONE/APAP 5MG/325MG(HOME DOSE PACK) PO ONE (04:00)
[2023-06-04] MEDS ORDERED: PERCOCET 5MG/325MG TAB PO ONE (04:00)
[2023-06-04 04:30] VITALS: BP 140/71; O2SAT 100
== END 2023-06-04 04:44 | disposition home or self-care (01) ==
LOC: M ED 23:00
DX: R07.9 Chest pain, unspecified (principal); M54.2 Cervicalgia; V40.0XXA Car driver injured in collision with pedestrian or animal in nontraffic accident, initial encounter; Z88.5 Allergy status to narcotic agent; Z79.52 Long term (current) use of systemic steroids; Z79.899 Other long term (current) drug therapy
CPT/HCPCS: 70450; 71260; 72125; 72128; 72131; 73090; 73110; 74177; 80047; 84702; 85025; 93041; 94760; 99285; Q9967

== ENCOUNTER 2024-03-14 13:15 | Emergency (ER) | payer MEDICAID, OTHER ==
[~2024-03-14] VITALS: Ht 170.2 cm; Wt 133.2 kg
[~2024-03-14 13:15] MED LIST changes: +BUSP5TA PO; +LEVO75TA4 PO; +NICO21PAT TD
[2024-03-14] MEDS ORDERED: CIPR-250 PO (13:58)
[2024-03-14 14:40] LABS: HEMATOCRIT 39.6 % (36.0-47.0); HEMOGLOBIN 12.3 g/dl (12.0-15.5); MEAN CORPUSCULAR HEMOGLOBIN 25.6 pg (27.0-33.0); MEAN CORPUSCULAR HGB CONC 31.1 g/dl (32.0-36.5); MEAN CORPUSCULAR VOLUME 82.5 fl (80.0-96.0); PLATELET COUNT, AUTOMATED 237 10^3/uL (150-450); WHITE BLOOD COUNT 7.1 10^3/uL (4.0-10.0)
[2024-03-14 14:55] LABS: ETHYL ALCOHOL (ETHANOL) 0.003 % (0.000-0.010)
[2024-03-14 14:57] LABS: SALICYLATE LEVEL < 3.0 MG/DL (<30)
[2024-03-14 14:59] LABS: THYROID STIMULATING HORMONE 3.097 uIU/ML (0.55-4.78)
[2024-03-14 15:01] LABS: ALBUMIN 3.6 G/DL (3.2-5.2); ALKALINE PHOSPHATASE 142 U/L (46-116); ALT/SGPT 17 U/L (7.0-40); AST/SGOT 12 U/L (<34); BILIRUBIN,DIRECT 0.2 MG/DL (<0.4); BILIRUBIN,TOTAL 0.6 MG/DL (0.3-1.2); BLOOD UREA NITROGEN < 5 MG/DL (9-23); CARBON DIOXIDE LEVEL 26 MMOL/L (20-31); CHLORIDE LEVEL 109 MMOL/L (98-107); CREATININE FOR GFR 0.58 MG/DL (0.55-1.30); GLOMERULAR FILTRATION RATE > 60.0 (>60); GLUCOSE, FASTING 105 MG/DL (60-100); HCG, SERUM QUALITATIVE NEGATIVE (NEGATIVE); SODIUM LEVEL 142 MMOL/L (136-145); TOTAL PROTEIN 6.5 G/DL (5.7-8.2)
[2024-03-14 15:49] LABS: AMPHETAMINES LEVEL URINE NEGATIVE (NEGATIVE); BARBITURATES URINE NEGATIVE (NEGATIVE); BENZODIAZEPINES URINE NEGATIVE (NEGATIVE); CANNABINOIDS URINE NEGATIVE (NEGATIVE); COCAINE METABOLITE URINE NEGATIVE (NEGATIVE); METHADONE URINE NEGATIVE (NEGATIVE); OPIATES URINE NEGATIVE (NEGATIVE); PHENCYCLIDINE URINE NEGATIVE (NEGATIVE)
[2024-03-14 16:31] VITALS: BP 149/78; TEMP 98; O2SAT 99
== END 2024-03-14 16:34 | disposition home or self-care (01) ==
LOC: M ED 13:15
DX: F32.A Depression, unspecified (principal); F41.9 Anxiety disorder, unspecified; Z85.850 Personal history of malignant neoplasm of thyroid; E55.9 Vitamin D deficiency, unspecified; E66.9 Obesity, unspecified; K21.9 Gastro-esophageal reflux disease without esophagitis; D50.9 Iron deficiency anemia, unspecified; Z79.899 Other long term (current) drug therapy; Z88.5 Allergy status to narcotic agent

== ENCOUNTER 2024-03-25 10:24 | Inpatient (IN) | payer OTHER ==
[~2024-03-25] VITALS: Ht 170.2 cm; Wt 134.3 kg
[~2024-03-25 10:24] MED LIST changes: +CIPR-250 PO
[2024-03-25] MEDS ORDERED: SYNT150T PO (12:48)
[2024-03-25] MEDS ORDERED: BUSP5TA PO (12:48)
[2024-03-25] MEDS ORDERED: FERR325T3 PO (12:48)
[2024-03-25] MEDS ORDERED: KETO2SHA8 TOP (12:48)
[2024-03-25] MEDS ORDERED: HOME MED LIST COMPLETE! XX SCH (12:50)
[2024-03-25 14:49] LABS: THYROID STIMULATING HORMONE 5.874 uIU/ML (0.55-4.78)
[2024-03-25 14:50] LABS: FREE T4 0.96 NG/DL (0.89-1.76)
[2024-03-25] MEDS ORDERED: IBUPROFEN 400MG TAB PO PRN (16:10)
[2024-03-25] MEDS ORDERED: traZODone 50 MG TAB PO PRN (16:10)
[2024-03-25] MEDS ORDERED: MOM 30ML SUSPENSION UDC PO PRN (16:10)
[2024-03-25] MEDS: diphenhydrAMINE 25MG CAP PO PRN (21:25)
[2024-03-25] MEDS: ACETAMINOPHEN TAB 650MG DOSE (2X325MG) PO PRN (21:25)
[2024-03-26 06:44] VITALS: BP 145/68; TEMP 97.7; O2SAT 100
[2024-03-26] MEDS: FERROUS SULFATE 325MG TAB PO SCH ×2 (09:00→20:50)
[2024-03-26] MEDS: VITAMIN D 1,000 INTERNATIONAL UNITS TABLET PO SCH ×2 (09:00→20:50)
[2024-03-26] MEDS: ASCORBIC ACID 500 MG TAB PO SCH ×2 (09:00→20:50)
[2024-03-26] MEDS: FOLIC ACID 1MG TAB PO SCH ×2 (09:00→20:50)
[2024-03-26] MEDS: TOPIRAMATE (TopAMAX) 25 MG TAB PO SCH (09:28)
[2024-03-26] MEDS: busPIRone 10 MG TAB PO SCH (09:28)
[2024-03-26] MEDS: VENLAFAXINE 37.5 MG TAB PO SCH (09:29)
[2024-03-26] MEDS: LEVOTHYROXINE 150MCG TABLET (0.15MG) PO SCH (09:34)
[2024-03-26] MEDS: MAALOX 30 ML SUSP *UDC PO PRN (11:54)
[2024-03-26] MEDS: FLUCONAZOLE 50MG TABLET PO ONE (12:17)
[2024-03-26 15:53] VITALS: BP 140/87; TEMP 98.8; O2SAT 100
[2024-03-26 20:39] VITALS: BP 140/87; TEMP 98.8; O2SAT 100
[2024-03-26] MEDS: MULTIVITAMINS/MINERALS THERAP 1 TAB PO SCH (20:50)
[2024-03-27 06:23] VITALS: BP 120/69; TEMP 98.1; O2SAT 100
[2024-03-27 16:17] VITALS: BP 143/69; TEMP 98.2; O2SAT 97
[2024-03-28 06:20] VITALS: BP 106/55; TEMP 97.1; O2SAT 97
[2024-03-28 15:44] VITALS: BP 142/78; TEMP 97.4; O2SAT 100
[2024-03-29 06:29] VITALS: BP 149/66; TEMP 98; O2SAT 97
[2024-03-29] MEDS ORDERED: BUSP10TA PO (12:43)
[2024-03-29] MEDS ORDERED: TOPA1TAB PO (12:43)
[2024-03-29] MEDS ORDERED: VENL37TA PO (12:43)
== END 2024-03-29 13:27 | disposition home or self-care (01) | DRG 754 ==
LOC: M ED 10:24 → M ED INP 16:09 → M PSY 18:25
PROVIDERS: ADMIT Student in an Organized Health Care Education/Training Program; ATTEND Student in an Organized Health Care Education/Training Program
DX: F32.9 Major depressive disorder, single episode, unspecified (principal); Z91.148 Patient's other noncompliance with medication regimen for other reason; R45.851 Suicidal ideations; F41.1 Generalized anxiety disorder; F43.10 Post-traumatic stress disorder, unspecified; F60.3 Borderline personality disorder; E89.0 Postprocedural hypothyroidism; Z79.899 Other long term (current) drug therapy; Z88.5 Allergy status to narcotic agent; Z88.8 Allergy status to other drugs, medicaments and biological substances; D50.9 Iron deficiency anemia, unspecified; E55.9 Vitamin D deficiency, unspecified; K21.9 Gastro-esophageal reflux disease without esophagitis; Z85.850 Personal history of malignant neoplasm of thyroid

== ENCOUNTER 2024-08-22 00:01 | Inpatient (IN) | payer MEDICAID, OTHER ==
[~2024-08-22] VITALS: Ht 170.2 cm; Wt 131.5 kg
[~2024-08-22 00:01] MED LIST changes: +BUSP10TA PO; +KETO2SHA8 TOP; +ONDA-282 PO; -ONDA4TAB6 PO; +SYNT150T PO; +TOPA1TAB PO; +VENL37TA PO
[2024-08-22 00:54] LABS: HEMATOCRIT 39.3 % (36.0-47.0); HEMOGLOBIN 12.6 g/dl (12.0-15.5); MEAN CORPUSCULAR HEMOGLOBIN 27.3 pg (27.0-33.0); MEAN CORPUSCULAR HGB CONC 32.1 g/dl (32.0-36.5); MEAN CORPUSCULAR VOLUME 85.1 fl (80.0-96.0); PLATELET COUNT, AUTOMATED 297 10^3/uL (150-450); RED BLOOD COUNT 4.62 10^6/uL (4.00-5.40); WHITE BLOOD COUNT 9.2 10^3/uL (4.0-10.0)
[2024-08-22 01:24] LABS: ETHYL ALCOHOL (ETHANOL) 0.003 % (0.000-0.010)
[2024-08-22 01:25] LABS: SALICYLATE LEVEL < 3.0 MG/DL (<30)
[2024-08-22 01:28] LABS: HCG, SERUM QUALITATIVE NEGATIVE (NEGATIVE)
[2024-08-22 01:29] LABS: ALBUMIN 3.7 G/DL (3.2-5.2); ALKALINE PHOSPHATASE 130 U/L (46-116); ALT/SGPT 16 U/L (7.0-40); AST/SGOT < 8 U/L (<34); BILIRUBIN,DIRECT 0.1 MG/DL (<0.4); BILIRUBIN,TOTAL 0.4 MG/DL (0.3-1.2); BLOOD UREA NITROGEN 10 MG/DL (9-23); CALCIUM LEVEL 9.4 MG/DL (8.5-10.1); CARBON DIOXIDE LEVEL 22 MMOL/L (20-31); CHLORIDE LEVEL 109 MMOL/L (98-107); CREATININE FOR GFR 0.54 MG/DL (0.55-1.30); FREE T4 1.35 NG/DL (0.89-1.76); GLOMERULAR FILTRATION RATE > 60.0 (>60); GLUCOSE, FASTING 131 MG/DL (60-100); POTASSIUM SERUM 3.8 MMOL/L (3.5-5.1); SODIUM LEVEL 138 MMOL/L (136-145); THYROID STIMULATING HORMONE 2.823 uIU/ML (0.55-4.78); TOTAL PROTEIN 6.6 G/DL (5.7-8.2)
[2024-08-22 02:28] LABS: AMPHETAMINES LEVEL URINE NEGATIVE (NEGATIVE); BARBITURATES URINE NEGATIVE (NEGATIVE); BENZODIAZEPINES URINE NEGATIVE (NEGATIVE); CANNABINOIDS URINE NEGATIVE (NEGATIVE); COCAINE METABOLITE URINE NEGATIVE (NEGATIVE); METHADONE URINE NEGATIVE (NEGATIVE); OPIATES URINE NEGATIVE (NEGATIVE); PHENCYCLIDINE URINE NEGATIVE (NEGATIVE)
[2024-08-22] MEDS ORDERED: IBUPROFEN 400MG TAB PO PRN (02:45)
[2024-08-22] MEDS ORDERED: diphenhydrAMINE 25MG CAP PO PRN (02:45)
[2024-08-22] MEDS ORDERED: MOM 30ML SUSPENSION UDC PO PRN (02:45)
[2024-08-22] MEDS ORDERED: MAALOX 30 ML SUSP *UDC PO PRN (02:45)
[2024-08-22] MEDS ORDERED: traZODone 50 MG TAB PO PRN (02:45)
[2024-08-22 03:43] VITALS: BP 138/92; TEMP 97.4; O2SAT 100
[2024-08-22] MEDS: ACETAMINOPHEN TAB 650MG DOSE (2X325MG) PO PRN (04:44)
[2024-08-22] MEDS ORDERED: PHEN30CA21 PO (05:04)
[2024-08-22] MEDS ORDERED: LEVO175T2 PO (05:04)
[2024-08-22] MEDS ORDERED: BUSP15TA47 PO (05:04)
[2024-08-22] MEDS ORDERED: VENL-37 PO (05:04)
[2024-08-22] MEDS ORDERED: TOPI25TA10 PO (05:04)
[2024-08-22] MEDS ORDERED: HOME MED LIST COMPLETE! XX SCH (05:10)
[2024-08-22 12:02] VITALS: BP 132/73
[2024-08-22] MEDS: TOPIRAMATE (TopAMAX) 25 MG TAB PO SCH (15:43)
[2024-08-22 15:52] VITALS: BP 120/84; TEMP 98.4; O2SAT 100
[2024-08-22] MEDS: busPIRone 5 MG TAB PO SCH (20:13)
[2024-08-22] MEDS: VENLAFAXINE 25 MG TAB PO SCH (20:14)
[2024-08-23 06:00] VITALS: BP 149/65; TEMP 97.7; O2SAT 100
[2024-08-23] MEDS: LEVOTHYROXINE 150MCG TABLET (0.15MG) PO SCH (06:04)
[2024-08-23] MEDS: LEVOTHYROXINE 25MCG TABLET (0.025MG) PO SCH (06:04)
[2024-08-23 15:55] VITALS: BP 138/65; TEMP 97.2; O2SAT 98
[2024-08-24 06:32] VITALS: BP 140/63; TEMP 97.2; O2SAT 97
[2024-08-24] MEDS ORDERED: VENL1TAB35 PO (09:41)
== END 2024-08-24 10:41 | disposition home or self-care (01) | DRG 751 ==
LOC: M ED 00:01 → M ED INP 02:43 → M PSY 04:01
PROVIDERS: ADMIT Psychiatry & Neurology Psychiatry; ATTEND Psychiatry & Neurology Psychiatry
DX: F33.9 Major depressive disorder, recurrent, unspecified (principal); Z68.42 Body mass index [BMI] 45.0-49.9, adult; R45.851 Suicidal ideations; E66.01 Morbid (severe) obesity due to excess calories; F60.89 Other specific personality disorders; Z88.5 Allergy status to narcotic agent; Z88.8 Allergy status to other drugs, medicaments and biological substances; Z79.899 Other long term (current) drug therapy; Z85.850 Personal history of malignant neoplasm of thyroid; D50.9 Iron deficiency anemia, unspecified; E55.9 Vitamin D deficiency, unspecified; K21.9 Gastro-esophageal reflux disease without esophagitis; F41.1 Generalized anxiety disorder; F43.10 Post-traumatic stress disorder, unspecified; F60.3 Borderline personality disorder; E89.0 Postprocedural hypothyroidism